=== PATIENT | male | born 1975 | race Caucasian/White ===

== ENCOUNTER 2016-12-28 08:06 | Outpatient (CLI) | payer MEDICARE, MEDICAID ==
--- OUTSIDE RECORDS SUMMARY | 2016-12-28 08:09 | XMS | Summary of Care ---
:1975 Author Name Librado Hollins Address Unavailable Unavailable , Care Team Providers Name Role Phone Librado Hollins Unavailable Unavailable SARAHI GODINEZ Unavailable Unavailable TAHIRA VIVEROS MD Primary Care Provider Unavailable TAHIRA LEBLANC Unavailable Unavailable , Unavailable Unavailable Functional Status Functional Status Health Issues Name Dates Details Functional status health issues are not documented Status: Cognitive Status Health Issues Name Dates Details Cognitive status health issues are not documented Status: Problems Name Dates Details Intracranial injury, initial encounter Status:Active Cerumen impaction(380.4, H61.20) Status:Active Well adult on routine health check(V70.0, Z00.00) Status:Active Influenza vaccine needed(V04.81, Z23) Status:Active Hypothyroidism(244.9, E03.9) Status:Active Head injury(959.01, S09.90XA) Status:Active Essential hypertriglyceridemia(272.1, E78.1) Status:Active Elevated liver function tests(790.6, R94.5) Status:Active Hyperlipidemia(272.4, E78.5) Status:Active Pre-diabetes(790.29, R73.03) Status:Active Need for hepatitis A and B vaccination(V05.3, Z23) Status:Active Behavioral problems(V40.9) Status:Active Depressive disorder(311, F32.9) Status:Active 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 Quantity:540 Refills:0 SARAHI GODINEZ M.D. ActiveSertraline HCl - 100 MG Oral Tablet TAKE ONE (1) TABLET(S) BY MOUTH TWICE A DAY. Quantity:180 Refills:0 SARAHI GODINEZ M.D. ActiveLevothyroxine Sodium 100 MCG Oral Tablet TAKE 1 TABLET DAILY DIRECTED. Quantity:90 Refills:1 Alpeshevelinemadeleinenj Librado N.Ana Huyfadz85-Mnps-4391 ActiveRosuvastatin Calcium 10 MG Oral Tablet TAKE ONE (1) TABLET(S) BY MOUTH ONCE A DAY. Quantity:90 Refills:3 Gunjan Librado N.PMarco Heeeydg0-Nrr-3774 SyqmgoFtwhu-7-jsps Ethyl Esters 1 GM Oral Capsule TAKE TWO (2) CAPSULE(S) BY MOUTH TWICE A DAY. Quantity:360 Refills:0 Librado Hollins N.Ana Immzqva21-Gzx-4283 ActiveFenofibrate 145 MG Oral Tablet TAKE 1 TABLET DAILY. Quantity:90 Refills:1 AlpeshevelineLibrado miranda N.P. Pklimxa1-Vqa-3594 ActiveOLANZapine 5 MG Oral Tablet TAKE ONE (1) TABLET(S) BY MOUTH AT BEDTIME. TAKE WITH OLANZAPINE 20 MG. Quantity:90 Refills:0 SARAHI GODINEZ M.D. Gizvdsr66-Jqjh-9175 FvxfikPyrdv-3-lumo Ethyl Esters 1 GM Oral Capsule TAKE 2 CAPSULE EVERY 12 HOURS Quantity:360 Refills:3 Alpeshevelineruben Librado N.PMarco Xbzhkcv48-Anxl-2106 ActiveFenofibrate 145 MG Oral Tablet TAKE one (1) tablet(s) by mouth every day. Quantity:90 Refills:3 AlpeshevelineLibrado miranda N.Ana Eydvwnc98-Gjj-8236 ActiveOLANZapine 20 MG Oral Tablet TAKE ONE (1) TABLET(S) BY MOUTH AT BEDTIME ALONG WITH OLANZAPINE 5MG. Quantity:90 Refills:0 SARAHI GODINEZ M.D. Srnkndx92-Iuu-6746 Active Allergies and Adverse Reactions Name Dates Details No Known Drug Allergies Status:Active Past Medical History Name Dates Details Head injury(959.01, S09.90XA) Status:Active History of Acute upper respiratory infection(465.9, J06.9) Status:Resolved History of Cough(786.2, R05) Status:Resolved History of essential hypertension(V12.59, Z86.79) Status:Resolved History of hyperlipidemia(V12.29, Z86.39) Status:Resolved History of hypothyroidism(V12.29, Z86.39) Status:Resolved History of obesity(V13.89, Z86.39) Status:Resolved Procedures Procedure Dates Details History of Brain Surgery History of Inguinal Hernia Repair History of Creation Of Ventriculo-Peritoneal CSF Shunt [[facility]] LIPID PANEL Ordered:03-May-2016 [[facility]] CMP W/EGFR Ordered:03-May-2016 [[facility]] HEMOGLOBIN A1c Ordered:03-May-2016 Liver [id number] Ordered:03-May-2016 Immunization Name Dates Details Influenza Administered on:19-Jan-2011 Lot #:[id number] Influenza Administered on:08-Apr-2013 Lot #:[id number] Fluzone Quadrivalent 0.5 ML Intramuscular Suspension Administered on:2015 Lot #:[id number] Fluzone Quadrivalent 0.5 ML Intramuscular Suspension Prefilled Syringe Administered on:26-Jan-2016 Lot #:[id number] Family History Mother Name Dates Details Family history of dementia(V17.2, Z81.8) Status:Active Family history of depression(V17.0, Z81.8) Status:Active Father Name Dates Details Family history of dementia(V17.2, Z81.8) Status:Active Family history of Alcohol dependence(303.90, F10.20) Status:Active Sister Name Dates Details Family history of depression(V17.0, Z81.8) Status:Active Brother Name Dates Details Family history of depression(V17.0, Z81.8) Status:Active Social History Name Dates Details - Smoking StatusNever smoker Vital Signs Date Test Result Details No Known Vitals to report Results Date Description Value Details 14-Jun-2016 11:36 [[facility]] CMP W/EGFR Glucose, Serum 84 mg/dL Range: 65-99 BUN 7 mg/dL Range: 6-24 Creatine, Serum 0.66 mg/dL (Below Range: 0.76-1.27 low threshold) eGFR If NonAfricn Am 119 mL/min/1.7 Range: >59 eGFR If Africn Am 138 mL/min/1.7 Range: >59 BUN/Creatine Ratio 11 Range: 9-20 Sodium, Serum 138 mmol/L Range: 134-144 Potassium, Serum 4.1 mmol/L Range: 3.5-5.2 Chloride, Serum 94 mmol/L (Below Range: 96-106 low threshold) Carbon Dioxide, Total 27 mmol/L Range: 18-29 Calcium, Serum 9.5 mg/dL Range: 8.7-10.2 Protein, Total, Serum 6.7 g/dL Range: 6.0-8.5 Albumin, Serum 4.1 g/dL Range: 3.5-5.5 Globulin, Total 2.6 g/dL Range: 1.5-4.5 A/G Ratio 1.6 Range: 1.2-2.2 Comments:Please note reference interval change Bilirubin, Total 0.3 mg/dL Range: 0.0-1.2 Alkaline Phosphatase, S 44 IU/L Range: 39-117 AST (SGOT) 37 IU/L Range: 0-40 ALT (SGPT) 34 IU/L Range: 0-44 11:36 [[facility]] LIPID PANEL Cholesterol, Total 137 mg/dL Range: 100-199 Triglycerides 210 mg/dL (Above Range: 0-149 high threshold) HDL Cholesterol 28 mg/dL (Below low Range: >39 threshold) VLDL Cholesterol Oleg 42 mg/dL (Above Range: 5-40 high threshold) LDL Cholesterol Calc 67 mg/dL Range: 0-99 Comment: LDL/HDL Ratio 2.4 ratio unit Range: 0.0-3.6 Comments:LDL/HDL Ratio Men Women 1/2 Avg.Risk 1.0 1.5 Avg.Risk 3.6 3.2 2X Avg.Risk 6.2 5.0 3X Avg.Risk 8.0 6.1 11:36 [[facility]] HEMOGLOBIN A1c Hemoglobin A1c 5.6 % Range: 4.8-5.6 Comments:. Pre-diabetes: 5.7 - 6.4 Diabetes: >6.4 Glycemic control for adults with diabetes: <7.0 Plan of Care Planned Observations Name Dates Details Planned Goals not documented Goal Planned Encounters Appointment; Provider: Librado Hollins Hr6-Ulwe-7228 10:45 Instructions Instructions not documented Encounters Appointment; Librado Hollins Encounter Diagnosis:Problem not documented 11:15 Appointment; SARAHI GODINEZ Encounter Diagnosis:Problem not documented 09:30 Appointment; Librado Hollins Encounter Diagnosis:Problem not documented 11:00 Appointment; Librado Hollins Encounter Diagnosis:Problem not documented 10:30 Appointment; SARAHI GODINEZ Encounter Diagnosis:Problem not documented 13:30 Appointment; Librado Hollins Encounter Diagnosis:Problem not documented 14:00 Appointment; Librado Hollins Encounter Diagnosis:Problem not documented 14:00 Appointment; SARAHI GODINEZ Encounter Diagnosis:Problem not documented 10:30 Appointment; SARAHI GODINEZ Encounter Diagnosis:Problem not documented 13:00 Appointment; Librado Hollins Encounter Diagnosis:Problem not documented 13:00 Appointment; MADI MEADE Encounter Diagnosis:Problem not documented 11:00 Appointment; Librado Hollins Encounter Diagnosis:Problem not documented 14:00 Appointment; AMBER CHAVEZ Encounter Diagnosis:Problem not documented 11:00
--- OUTSIDE RECORDS SUMMARY | 2016-12-28 08:09 | XMS | Summary of Care ---
:1975 Author Name SARAHI GODINEZ Address Unavailable Unavailable , Care Team Providers [...] TAKE 1 TABLET DAILY DIRECTED. Quantity:90 Refills:1 Librado Hollins NDanette Ilgdbbs34-Skig-3082 ActiveRosuvastatin Calcium 10 MG Oral Tablet TAKE ONE (1) TABLET(S) BY MOUTH ONCE A DAY. Quantity:90 Refills:1 AlpeshevelineLeonel mirandain N.P. Uospnoc0-Ivd-2029 HzpbwdAlpgw-3-xvza Ethyl Esters 1 GM Oral Capsule TAKE TWO (2) CAPSULE(S) BY MOUTH TWICE A DAY. Quantity:360 Refills:0 Librado Hollins N.Ana Rtenhvp43-Scy-3743 ActiveFenofibrate 145 MG Oral Tablet TAKE 1 TABLET DAILY. Quantity:90 Refills:1 Librado Hollins N.P. Mhcgfpp0-Udo-3894 ActiveOLANZapine 5 MG Oral Tablet TAKE ONE (1) TABLET(S) BY MOUTH AT BEDTIME. TAKE WITH OLANZAPINE 20 MG. Quantity:90 Refills:0 SARAHI GODINEZ M.D. Uhxgmsj45-Hzss-5059 ApyxhmTwlit-4-agqn Ethyl Esters 1 GM Oral Capsule TAKE 2 CAPSULE EVERY 12 HOURS Quantity:360 Refills:3 Librado Hollins N.Ana Szpmuck06-Wvuy-0277 ActiveFenofibrate 145 MG Oral Tablet TAKE one (1) tablet(s) by mouth every day. Quantity:90 Refills:3 Librado Hollins N.Ana Ozwhhho58-Jpf-7454 ActiveOLANZapine 20 MG Oral Tablet TAKE ONE (1) TABLET(S) BY MOUTH AT BEDTIME ALONG WITH OLANZAPINE 5MG. Quantity:90 Refills:0 SARAHI GODINEZ M.D. Adawrdd00-Yfy-9911 Active Allergies and Adverse Reactions Name Dates [...] History of Creation Of Ventriculo-Peritoneal CSF Shunt [[facility]] LIPID PANEL Ordered:03-May-2016 [[facility]] CMP W/EGFR Ordered:03-May-2016 [[facility]] HEMOGLOBIN A1c Ordered:03-May-2016 Liver [id number] Ordered:03-May-2016 Immunization Name Dates Details Influenza Administered on:19-Jan-2011 Lot #:[id number] Influenza Administered on:08-Apr-2013 Lot #:[id number] Fluzone Quadrivalent 0.5 ML Intramuscular Suspension Administered on:2015 Lot #:[id number] Fluzone Quadrivalent 0.5 ML Intramuscular Suspension Prefilled Syringe Administered on:26-Jan-2016 Lot #:[id number] Family History Mother Name Dates Details Family [...] smoker Vital Signs Date Test Result Details 03-May-2016 11:10 BP Systolic 111mm[Hg] Status: BP Diastolic 74mm[Hg] Status: Temperature 97.9f Status: Heart Rate 77/min Status: Physical Findings 16 Status:Comments:Respiration Height 72in Status: Weight 242.25lb Status: Body Mass Index Calculated 32.86kg/m2 Status: Body Surface Area Calculated 2.31m2 Status: 03-May-2016 09:45 BP Systolic 118mm[Hg] Status: BP Diastolic 76mm[Hg] Status: Height 72in Status: Weight 242lb Status: Body Mass Index Calculated 32.82kg/m2 Status: Body Surface Area Calculated 2.31m2 Status: Results Date Description Value Details Results not documented Plan of Care Planned Observations Name Dates Details Planned Goals not documented Goal Planned Encounters Appointment; Provider: Librado Hollins Nf7-Wvge-5661 10:45 Interventions Provided Medication ChangesDivalproex Sodium ER 500 MG Oral Tablet Extended Release 24 Hour - RenewOLANZapine 20 MG Oral Tablet - RenewOLANZapine 5 MG Oral Tablet - RenewSertraline HCl - 100 MG Oral Tablet - RenewPlan Section DataPlan Section: Details from Note:Discussed diagnosis, differential diagnosis, co morbidities, bio psychosocial factors, predisposing, precipitating and maintaining symptoms - Continue current dose of Depakote, Zyprexa and Zoloft.- F/u with MD in 2-3 month as it is difficulty for sister to bring patient to appointments.-Call with psychiatric concerns prior to next f/u visit. Instructions Instructions not documented Encounters Appointment; Librado Hollins Encounter Diagnosis:Problem not documented 11:00 Appointment; Librado Hollins Encounter Diagnosis:Problem not documented 10:30 Appointment; SARAHI GODINEZ Encounter Diagnosis:Problem not documented 13:30 Appointment; Librado Hlolins Encounter Diagnosis:Problem not documented 14:00 Appointment; Librado [...]
--- OUTSIDE RECORDS SUMMARY | 2016-12-28 08:09 | XMS | Summary of Care ---
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 Quantity:180 Refills:1 SARAHI GODINEZ M.D. Oogwbfg8-Ajk-8381 ActiveSertraline HCl - 100 MG Oral Tablet TAKE ONE (1) TABLET(S) BY MOUTH TWICE A DAY. Quantity:60 Refills:2 SARAHI GODINEZ M.D. ActiveLevothyroxine Sodium 100 MCG Oral Tablet TAKE 1 TABLET DAILY DIRECTED. Quantity:90 Refills:1 HardwiLibrado miranda N.P. Nksdhbl61-Xbsh-8305 ActiveRosuvastatin Calcium 10 MG Oral Tablet TAKE ONE (1) TABLET(S) BY MOUTH ONCE A DAY. Quantity:90 Refills:1 AlpeshevelinemadeleinenjLibrado N.Ana Ekryxix8-Xlc-4393 PmuoqeJkgca-1-vdld Ethyl Esters 1 GM Oral Capsule TAKE 2 CAPSULES TWICE DAILY. Quantity:360 Refills:1 Librado Hollins N.PMarcoActiveFenofibrate 145 MG Oral Tablet TAKE 1 TABLET DAILY. Quantity:90 Refills:1 AlpeshevelineLibrado miranda NMarcoPMarco Iamchlm6-Ept-1587 ActiveOLANZapine 5 MG Oral Tablet TAKE ONE (1) TABLET(S) BY MOUTH AT BEDTIME. TAKE WITH OLANZAPINE 20 MG. Quantity:30 Refills:2 SARAHI GODINEZ M.D. Atudims41-Jpgw-6430 GegoybZpflx-0-kyhs Ethyl Esters 1 GM Oral Capsule TAKE 2 CAPSULE EVERY 12 HOURS Quantity:360 Refills:3 Librado Hollins N.P. Ljyslrv37-Rtgf-9976 ActiveFenofibrate 145 MG Oral Tablet TAKE one (1) tablet(s) by mouth every day. Quantity:90 Refills:3 Librado Hollins NDanette Eeahwjp20-Npj-2343 ActiveOLANZapine 20 MG Oral Tablet TAKE ONE (1) TABLET(S) BY MOUTH AT BEDTIME ALONG WITH OLANZAPINE 5MG. Quantity:30 Refills:2 SARAHI GODINEZ M.D. Inzcpcu86-Miu-0257 Active Allergies and Adverse Reactions Name Dates [...] History of Creation Of Ventriculo-Peritoneal CSF Shunt [[facility]] LIPID PANEL Ordered:26-Jan-2016 [[facility]] CMP W/EGFR Ordered:26-Jan-2016 [[facility]] HEMOGLOBIN A1c Ordered:26-Jan-2016 [[facility]] HEPATITIS B SURFACE ANTIBODY (QUANT) Ordered:26-Jan-2016 [[facility]] HEPATITIS A AB, TOTAL Ordered:26-Jan-2016 [[facility]] HEPATITIS PANEL Ordered:26-Jan-2016 Liver [id number] Ordered:26-Jan-2016 Immunization Name Dates Details Influenza Administered on:19-Jan-2011 Lot #:[id number] Influenza Administered on:08-Apr-2013 Lot #:[id number] Fluzone Quadrivalent 0.5 ML Intramuscular Suspension Administered on:2015 Lot #:[id number] Fluzone Quadrivalent 0.5 ML Intramuscular Suspension Prefilled Syringe Administered on:26-Jan-2016 Lot #:[id number] Family History Mother Name Dates Details Family [...] to report Results Date Description Value Details Results not documented Plan of Care Planned Observations Name Dates Details Planned Goals not documented Goal Interventions Provided Medication ChangesFenofibrate 145 MG Oral Tablet - Renew Instructions Instructions not documented Encounters Appointment; Librado Hollins Wm48-Avs-2449 Encounter Diagnosis:Problem not documented 10:30 Appointment; SARAHI GODINEZ Qc22-Gyu-6629 Encounter Diagnosis:Problem not documented 13:30 Appointment; Librado Hollins Ia82-Pyms-6725 Encounter Diagnosis:Problem not documented 14:00 Appointment; Librado Hollins Vy8-Dmcm-9969 Encounter Diagnosis:Problem not documented 14:00 Appointment; SARAHI GODINEZ Pa65-Zcz-6808 Encounter Diagnosis:Problem not documented 10:30 Appointment; SARAHI GODINEZ Encounter Diagnosis:Problem not documented 13:00 Appointment; Librado Hollins Encounter Diagnosis:Problem not documented 13:00 Appointment; MADI MEADE Encounter Diagnosis:Problem not documented 11:00 Appointment; Librado Hollins Encounter Diagnosis:Problem not documented 14:00 Appointment; AMBER CHAVEZ Encounter Diagnosis:Problem not documented 11:00
--- OUTSIDE RECORDS SUMMARY | 2016-12-28 08:09 | XMS | Summary of Care ---
[...] Status:Active Elevated liver function tests(790.6, R94.5) Status:Active Pre-diabetes(790.29, R73.03) Status:Active Medications Name Dates Details Divalproex Sodium ER 500 MG Oral Tablet Extended Release 24 Hour TAKE THREE (3) TABLETS BY MOUTH EVERY MORNING AND THREE (3) TABLETS EVERY EVENING. Quantity:180 Refills:0 SARAHI GODINEZ M.D. ActiveSertraline HCl - 100 MG Oral Tablet TAKE ONE (1) TABLET(S) BY MOUTH TWICE A DAY. Quantity:60 Refills:0 SARAHI GODINEZ M.D. ActiveLevothyroxine Sodium 100 MCG Oral Tablet TAKE 1 TABLET DAILY DIRECTED. Quantity:90 Refills:1 Librado Hollins N.P. Hcyltpn26-Nbkz-2614 ActiveRosuvastatin Calcium 10 MG Oral Tablet TAKE ONE (1) TABLET(S) BY MOUTH ONCE A DAY. Quantity:90 Refills:1 Librado Hollins N.P. Fgfcxwq8-Mgf-0768 YduyxdChnds-6-usxq Ethyl Esters 1 GM Oral Capsule TAKE TWO (2) CAPSULE(S) BY MOUTH TWICE A DAY. Quantity:360 Refills:0 Librado Hollins N.P. Wwmggcx08-Isr-7513 ActiveFenofibrate 145 MG Oral Tablet TAKE 1 TABLET DAILY. Quantity:90 Refills:1 Librado Hollins N.P. Gqluyoa4-Bkk-9918 ActiveOLANZapine 5 MG Oral Tablet TAKE ONE (1) TABLET(S) BY MOUTH AT BEDTIME. TAKE WITH OLANZAPINE 20 MG. Quantity:30 Refills:0 SARAHI GODINEZ M.D. Ypfxhva43-Ibxd-6416 OorsquVqbgc-6-snxg Ethyl Esters 1 GM Oral Capsule TAKE 2 CAPSULE EVERY 12 HOURS Quantity:360 Refills:3 Librado Hollins N.P. Rtruens89-Pfuo-6571 ActiveFenofibrate 145 MG Oral Tablet TAKE one (1) tablet(s) by mouth every day. Quantity:90 Refills:3 Librado Hollins N.P. Augkiut49-Dpw-7609 ActiveOLANZapine 20 MG Oral Tablet TAKE ONE (1) TABLET(S) BY MOUTH AT BEDTIME ALONG WITH OLANZAPINE 5MG. Quantity:30 Refills:0 SARAHI GODINEZ M.D. Siseudn54-Kag-4413 Active Allergies and Adverse Reactions Name Dates [...] History of Creation Of Ventriculo-Peritoneal CSF Shunt Procedures not documented Immunization Name Dates Details Influenza Administered on:19-Jan-2011 Lot #:[id number] Influenza Administered on:08-Apr-2013 Lot #:[id number] Fluzone Quadrivalent 0.5 ML Intramuscular Suspension Administered on:2015 Lot #:[id number] Fluzone Quadrivalent 0.5 ML Intramuscular Suspension Prefilled Syringe Administered on:26-Jan-2016 Lot #:[id number] Family History Mother Name Dates Details Family [...] Goal Planned Encounters Appointment; Provider: Librado Hollins Zs9-Qem-9315 11:15 Appointment; Provider: SARAHI GODINEZ Ah2-Pek-8150 09:30 Interventions Provided Medication ChangesDivalproex Sodium ER 500 MG Oral Tablet Extended Release 24 Hour - Renew Instructions Instructions not documented Encounters [...]
--- OUTSIDE RECORDS SUMMARY | 2016-12-28 08:09 | XMS | Summary of Care ---
[...] DAILY DIRECTED. Quantity:90 Refills:1 Alpeshevelinemadeleinenj Librado N.Ana Tkleplw64-Pwep-6551 ActiveRosuvastatin Calcium 10 MG Oral Tablet TAKE ONE (1) TABLET(S) BY MOUTH ONCE A DAY. Quantity:90 Refills:1 Gunjan Librado N.PMarco Vpurkgi8-Bdm-4159 NlzgayDmuau-9-zbpi Ethyl Esters 1 GM Oral Capsule TAKE TWO (2) CAPSULE(S) BY MOUTH TWICE A DAY. Quantity:360 Refills:0 Alpeshevelineruben Librado N.PMarco Kmencii92-Yjp-3740 CllqxbDpzrt-2-xmhg Ethyl Esters 1 GM Oral Capsule TAKE 2 CAPSULE EVERY 12 HOURS Quantity:360 Refills:3 Gunjan Librado N.Ana Ohxgbau90-Kjrm-1813 ActiveOLANZapine 20 MG Oral Tablet TAKE ONE (1) TABLET(S) BY MOUTH AT BEDTIME ALONG WITH OLANZAPINE 5MG. Quantity:30 Refills:2 SARAHI GODINEZ M.D. Giamzsw33-Pvn-4857 ActiveOLANZapine 5 MG Oral Tablet TAKE ONE (1) TABLET(S) BY MOUTH AT BEDTIME. TAKE WITH OLANZAPINE 20 MG. Quantity:30 Refills:2 SARAHI GODINEZ M.D. Amiylvl54-Vkwi-8605 ActiveFenofibrate 145 MG Oral Tablet TAKE 1 TABLET DAILY. Quantity:90 Refills:1 AlpeshevelineLibrado miranda N.Ana Jtndaqf4-Cqw-3153 ActiveFenofibrate 145 MG Oral Tablet TAKE one (1) tablet(s) by mouth every day. Quantity:90 Refills:3 AlpeshevelineLibrado miranda N.Ana Phwbvqb89-Vwf-9200 Active Allergies and Adverse Reactions Name Dates [...] Name Dates Details Influenza Administered on:19-Jan-2011 Lot #:[id number] Influenza Administered on:08-Apr-2013 Lot #:[id number] Fluzone Quadrivalent 0.5 ML Intramuscular Suspension Administered on:2015 Lot #:[id number] Fluzone Quadrivalent 0.5 ML Intramuscular Suspension Prefilled Syringe Administered on:26-Jan-2016 Lot #:[id number] Family History Mother Name Dates Details Family [...] Goals not documented Goal Interventions Provided Medication DlvhgukGnokh-7-embp Ethyl Esters 1 GM Oral Capsule - Renew Instructions Instructions not documented Encounters Appointment; Librado Hollins Vs71-Rdi-1685 Encounter Diagnosis:Problem not documented 10:30 Appointment; SARAHI [...]
--- OUTSIDE RECORDS SUMMARY | 2016-12-28 08:09 | XMS | Summary of Care ---
:1975 Author Name Librado Hollins Address Unavailable Unavailable , Care Team Providers Name Role Phone Nurysnj Librado Unavailable Unavailable SARAHI GODINEZ Unavailable Unavailable TAHIRA [...] EVERY EVENING. Quantity:180 Refills:0 SARAHI GODINEZ M.D. Nfqxygh6-Pvl-6132 ActiveSertraline HCl - 100 MG Oral Tablet TAKE ONE (1) TABLET(S) BY MOUTH TWICE A DAY. Quantity:60 Refills:2 SARAHI GODINEZ M.D. Uvxpkkn8-Wnz-8477 ActiveLevothyroxine Sodium 100 MCG Oral Tablet TAKE 1 TABLET DAILY DIRECTED. Quantity:90 Refills:1 Librado Hollins N.P. Qisjlax96-Fmip-8508 ActiveRosuvastatin Calcium 10 MG Oral Tablet TAKE ONE (1) TABLET(S) BY MOUTH ONCE A DAY. Quantity:90 Refills:1 Librado Hollins N.PMarco Oskxtha7-Bxj-9970 CmkwcvOemwv-1-wdmi Ethyl Esters 1 GM Oral Capsule TAKE 2 CAPSULES TWICE DAILY. Quantity:360 Refills:1 Librado Hollins N.PMarcoActiveFenofibrate 145 MG Oral Tablet TAKE 1 TABLET DAILY. Quantity:90 Refills:1 Librado Hollins N.PMarco Qlsbdcc0-Ygs-5534 ActiveOLANZapine 5 MG Oral Tablet TAKE ONE (1) TABLET(S) BY MOUTH AT BEDTIME. TAKE WITH OLANZAPINE 20 MG. Quantity:30 Refills:2 SARAHI GODINEZ M.D. Dnnhceu85-Cqbd-1308 ViewuvUeudq-7-jfom Ethyl Esters 1 GM Oral Capsule TAKE 2 CAPSULE EVERY 12 HOURS Quantity:360 Refills:3 Librado Hollins N.P. Ogpxkns62-Fdjn-6747 ActiveFenofibrate 145 MG Oral Tablet TAKE one (1) tablet(s) by mouth every day. Quantity:90 Refills:3 Librado Hollins NDanette Ciypkmv16-Pqe-2607 ActiveOLANZapine 20 MG Oral Tablet TAKE ONE (1) TABLET(S) BY MOUTH AT BEDTIME ALONG WITH OLANZAPINE 5MG. Quantity:30 Refills:2 SARAHI GODINEZ M.D. Ewvkgpb45-Qiv-7690 Active Allergies and Adverse Reactions Name Dates [...] Name Dates Details Influenza Administered on:19-Jan-2011 Lot #:[id number] Influenza Administered on:08-Apr-2013 Lot #:[id number] Fluzone Quadrivalent 0.5 ML Intramuscular Suspension Administered on:2015 Lot #:[id number] Fluzone Quadrivalent 0.5 ML Intramuscular Suspension Prefilled Syringe Administered on:26-Jan-2016 Lot #:[id number] Family History Mother Name Dates Details Family [...] Details Planned Goals not documented Goal Planned Medications Name Dates Details Rosuvastatin Calcium 10 MG Oral Tablet Ordered:09-Dec-2015 Active Fenofibrate 145 MG Oral Tablet Ordered:14-Dec-2015 Active Interventions Provided Labs/Procedures/Imaging[QL] TSH, 3RD GENERATION W/REFLEX TO FT4; To be Done: 08 Apr 2015InstructionsPatient Specific Education Given; Done:Medications/ Immunizations AdministeredFluzone Quadrivalent 0.5 ML Intramuscular Suspension; Done: 08 Apr 2015 Instructions Instructions not documented Encounters Appointment; MADI MEADE Ka61-Bbbk-8763 Encounter Diagnosis:Problem not documented 11:00 Appointment; Librado Hollins Encounter Diagnosis:Problem not documented 14:00 Appointment; AMBER CHAVEZ Encounter Diagnosis:Problem not documented 11:00
--- OUTSIDE RECORDS SUMMARY | 2016-12-28 08:09 | XMS | Summary of Care ---
:1975 Author Care Team Providers Name Role Phone Gunjan Librado Unavailable Unavailable SARAHI GODINEZ Unavailable Unavailable [...] hepatitis A and B vaccination(V05.3, Z23) Status:Active Medications Name Dates Details Divalproex Sodium ER 500 MG Oral Tablet Extended Release 24 Hour TAKE THREE (3) TABLETS BY MOUTH EVERY MORNING AND THREE (3) TABLETS EVERY EVENING. Quantity:180 Refills:0 SARAHI GODINEZ M.D. Bmzrqqf1-Nwo-7780 ActiveSertraline HCl - 100 MG Oral Tablet TAKE ONE (1) TABLET(S) BY MOUTH TWICE A DAY. Quantity:60 Refills:0 SARAHI GODINEZ M.D. ActiveLevothyroxine Sodium 100 MCG Oral Tablet TAKE 1 TABLET DAILY DIRECTED. Quantity:90 Refills:1 Librado Hollins N.P. Rkwcrde31-Dpao-4186 ActiveRosuvastatin Calcium 10 MG Oral Tablet TAKE ONE (1) TABLET(S) BY MOUTH ONCE A DAY. Quantity:90 Refills:1 Librado Hollins N.P. Ndjchkl8-Nfy-6513 SjoqieJjxpf-1-yhpq Ethyl Esters 1 GM Oral Capsule TAKE TWO (2) CAPSULE(S) BY MOUTH TWICE A DAY. Quantity:360 Refills:0 Librado Hollins N.P. Ynegqbb72-Cpr-2067 ActiveFenofibrate 145 MG Oral Tablet TAKE 1 TABLET DAILY. Quantity:90 Refills:1 Librado Hollins N.P. Jtwyupq1-Lit-8105 ActiveOLANZapine 5 MG Oral Tablet TAKE ONE (1) TABLET(S) BY MOUTH AT BEDTIME. TAKE WITH OLANZAPINE 20 MG. Quantity:30 Refills:0 SARAHI GODINEZ M.D. Hshalsb81-Gdef-0849 RajialFtaci-7-sfxs Ethyl Esters 1 GM Oral Capsule TAKE 2 CAPSULE EVERY 12 HOURS Quantity:360 Refills:3 Librado Hollins N.P. Xrearlo64-Jzex-2494 ActiveFenofibrate 145 MG Oral Tablet TAKE one (1) tablet(s) by mouth every day. Quantity:90 Refills:3 Librado Hollins N.P. Izaaabt04-Avd-9027 ActiveOLANZapine 20 MG Oral Tablet TAKE ONE (1) TABLET(S) BY MOUTH AT BEDTIME ALONG WITH OLANZAPINE 5MG. Quantity:30 Refills:0 SARAHI GODINEZ M.D. Mrnbtoq64-Ioi-0297 Active Allergies and Adverse Reactions Name Dates [...] of Creation Of Ventriculo-Peritoneal CSF Shunt [QL] HEMOGLOBIN A1c Ordered:03-May-2016 [[facility]] CMP W/EGFR Ordered:03-May-2016 [[facility]] LIPID PANEL Ordered:03-May-2016 Liver [id number] Ordered:03-May-2016 Immunization Name Dates Details Influenza Administered on:19-Jan-2011 Lot #:[id number] Influenza Administered on:08-Apr-2013 Lot #:[id number] Fluzone Quadrivalent 0.5 ML Intramuscular Suspension Administered on:2015 Lot #:[id number] Fluzone Quadrivalent 0.5 ML Intramuscular Suspension Prefilled Syringe Administered on:26-Jan-2016 Lot #:[id number] Family History Mother Name Dates Details Family [...] Goal Planned Encounters Appointment; Provider: Librado Hollins Ez6-Vlmi-4732 10:45 Appointment; Provider: SARAHI GODINEZ 11:00 Instructions Instructions not documented Encounters Appointment; Librado [...]
--- OUTSIDE RECORDS SUMMARY | 2016-12-28 08:09 | XMS | Summary of Care ---
[...] A DAY. Quantity:180 Refills:0 SARAHI GODINEZ M.D. Yserpur7-Ach-2988 ActiveLevothyroxine Sodium 100 MCG Oral Tablet TAKE 1 TABLET DAILY DIRECTED. Quantity:90 Refills:1 AlpeshevelineLibrado miranda N.Ana Rdkwfnr48-Otlp-4526 ActiveRosuvastatin Calcium 10 MG Oral Tablet TAKE ONE (1) TABLET(S) BY MOUTH ONCE A DAY. Quantity:90 Refills:3 Gunjan Librado N.P. Fuffdpy4-Abd-5709 GzugzrFcctr-6-aduj Ethyl Esters 1 GM Oral Capsule TAKE TWO (2) CAPSULE(S) BY MOUTH TWICE A DAY. Quantity:360 Refills:0 Librado Hollins N.PMarco Zsymkhy13-Vjq-9703 ActiveFenofibrate 145 MG Oral Tablet TAKE 1 TABLET DAILY. Quantity:90 Refills:1 Librado Hollins N.P. Wthzgkk4-Ejv-1544 ActiveOLANZapine 5 MG Oral Tablet TAKE ONE (1) TABLET(S) BY MOUTH AT BEDTIME. TAKE WITH OLANZAPINE 20 MG. Quantity:90 Refills:0 SARAHI GODINEZ M.D. Iyewohg36-Jtdl-4424 PdkwpdTzkja-6-qqjo Ethyl Esters 1 GM Oral Capsule TAKE 2 CAPSULE EVERY 12 HOURS Quantity:360 Refills:3 Librado Hollins N.PMarco Dunovxn24-Eyxq-4589 ActiveFenofibrate 145 MG Oral Tablet TAKE one (1) tablet(s) by mouth every day. Quantity:90 Refills:3 Librado Hollins N.PMarco Vxeiqwu34-Tqj-8291 ActiveOLANZapine 20 MG Oral Tablet TAKE ONE (1) TABLET(S) BY MOUTH AT BEDTIME ALONG WITH OLANZAPINE 5MG. Quantity:90 Refills:0 SARAHI GODINEZ M.D. Mzjhmkx33-Gwm-5586 Active Allergies and Adverse Reactions Name Dates [...] Name Dates Details Influenza Administered on:19-Jan-2011 Lot #:[id number] Influenza Administered on:08-Apr-2013 Lot #:[id number] Fluzone Quadrivalent 0.5 ML Intramuscular Suspension Administered on:2015 Lot #:[id number] Fluzone Quadrivalent 0.5 ML Intramuscular Suspension Prefilled Syringe Administered on:26-Jan-2016 Lot #:[id number] Family History Mother Name Dates Details Family [...] Results Date Description Value Details 14-Jun-2016 11:36 [[facility]] CMP W/EGFR Glucose, Serum 84 mg/dL Range: [...] ALT (SGPT) 34 IU/L Range: 0-44 11:36 [[facility]] LIPID PANEL Cholesterol, Total 137 mg/dL Range: [...] 6.2 5.0 3X Avg.Risk 8.0 6.1 11:36 [QL] HEMOGLOBIN A1c Hemoglobin A1c 5.6 % Range: 4.8-5.6 Comments:. Pre-diabetes: 5.7 - 6.4 Diabetes: >6.4 Glycemic control for adults with diabetes: <7.0 Plan of Care Planned Observations Name Dates Details Planned Goals not documented Goal Planned Encounters Appointment; Provider: Librado Hollins Uo8-Rxhj-9244 10:45 Instructions Instructions not documented Encounters Appointment; [...]
--- OUTSIDE RECORDS SUMMARY | 2016-12-28 08:09 | XMS | Summary of Care ---
:1975 Author Name Brenda Smith Address Unavailable Unavailable , Care Team Providers Name Role Phone Librado Hollins Unavailable Unavailable Brenda Smith Unavailable Unavailable SARAHI GODINEZ Unavailable Unavailable TAHIRA [...] TABLET DAILY DIRECTED. Quantity:90 Refills:1 Librado Hollins N.PMarco Tjiqfcj53-Mudl-4328 ActiveRosuvastatin Calcium 10 MG Oral Tablet TAKE ONE (1) TABLET(S) BY MOUTH ONCE A DAY. Quantity:90 Refills:1 Leonel Hollinsin N.P. Yyvqcpf8-Vcu-1141 JrjqwuNsoaz-9-sqnt Ethyl Esters 1 GM Oral Capsule TAKE TWO (2) CAPSULE(S) BY MOUTH TWICE A DAY. Quantity:360 Refills:0 Leonel Hollinsin N.P. Ouxwlqf39-Blx-2554 ActiveFenofibrate 145 MG Oral Tablet TAKE 1 TABLET DAILY. Quantity:90 Refills:1 Leonel Hollinsin N.P. Yqccgio2-Blf-0100 ActiveOLANZapine 5 MG Oral Tablet TAKE ONE (1) TABLET(S) BY MOUTH AT BEDTIME. TAKE WITH OLANZAPINE 20 MG. Quantity:30 Refills:0 SARAHI GODINEZ M.D. Azwcoee49-Ztqn-7836 BrkteyKdtfx-1-iinz Ethyl Esters 1 GM Oral Capsule TAKE 2 CAPSULE EVERY 12 HOURS Quantity:360 Refills:3 Librado Hollins N.PMarco Ldhwpjz35-Wqiz-2479 ActiveFenofibrate 145 MG Oral Tablet TAKE one (1) tablet(s) by mouth every day. Quantity:90 Refills:3 Librado Hollins N.PMarco Jkwiubo65-Ruc-8854 ActiveOLANZapine 20 MG Oral Tablet TAKE ONE (1) TABLET(S) BY MOUTH AT BEDTIME ALONG WITH OLANZAPINE 5MG. Quantity:30 Refills:0 SARAHI GODINEZ M.D. Syjbscf35-Zle-0076 Active Allergies and Adverse Reactions Name Dates [...] of Creation Of Ventriculo-Peritoneal CSF Shunt [[facility]] LIPID PANEL Ordered:03-May-2016 [[facility]] CMP W/EGFR Ordered:03-May-2016 [[facility]] HEMOGLOBIN A1c Ordered:03-May-2016 Liver [id number] Ordered:03-May-2016 Immunization Name Dates Details Influenza Administered on:19-Jan-2011 Lot #:[id number] Influenza Administered on:08-Apr-2013 Lot #:[id number] Fluzone Quadrivalent 0.5 ML Intramuscular Suspension Administered on:2015 Lot #:[id number] Fluzone Quadrivalent 0.5 ML Intramuscular Suspension Prefilled Syringe Administered on:26-Jan-2016 Lot #:[id number] Family History Mother Name Dates Details Family [...] Goal Planned Encounters Appointment; Provider: Librado Hollins 10:45 Appointment; Provider: SARAHI GODINEZ 11:00 Instructions [...]
--- OUTSIDE RECORDS SUMMARY | 2016-12-28 08:09 | XMS | Summary of Care ---
[...] DAILY DIRECTED. Quantity:90 Refills:1 Librado Hollins N.P. Xigjmvd30-Ndog-5045 ActiveRosuvastatin Calcium 10 MG Oral Tablet TAKE ONE (1) TABLET(S) BY MOUTH ONCE A DAY. Quantity:90 Refills:1 Librado Hollins N.P. Ltdglph0-Mqw-4884 QysorlWnlpp-5-kmcv Ethyl Esters 1 GM Oral Capsule TAKE TWO (2) CAPSULE(S) BY MOUTH TWICE A DAY. Quantity:360 Refills:0 Librado Hollins N.P. Hiavvpn65-Fok-5962 ActiveFenofibrate 145 MG Oral Tablet TAKE 1 TABLET DAILY. Quantity:90 Refills:1 Librado Hollins N.P. Fwvhmoj1-Hms-1136 ActiveOLANZapine 5 MG Oral Tablet TAKE ONE (1) TABLET(S) BY MOUTH AT BEDTIME. TAKE WITH OLANZAPINE 20 MG. Quantity:30 Refills:0 SARAHI GODINEZ M.D. Jsnhtjk18-Souy-7782 RsjkvoDkfpd-3-fqlm Ethyl Esters 1 GM Oral Capsule TAKE 2 CAPSULE EVERY 12 HOURS Quantity:360 Refills:3 Librado Hollins N.P. Kkryuut87-Kcrl-3086 ActiveFenofibrate 145 MG Oral Tablet TAKE one (1) tablet(s) by mouth every day. Quantity:90 Refills:3 Librado Hollins N.P. Tcgirlz64-Hqa-1509 ActiveOLANZapine 20 MG Oral Tablet TAKE ONE (1) TABLET(S) BY MOUTH AT BEDTIME ALONG WITH OLANZAPINE 5MG. Quantity:30 Refills:0 SARAHI GODINZE M.D. Doxryji96-Wff-0126 Active Allergies and Adverse Reactions Name Dates [...] Name Dates Details Influenza Administered on:19-Jan-2011 Lot #:[id number] Influenza Administered on:08-Apr-2013 Lot #:[id number] Fluzone Quadrivalent 0.5 ML Intramuscular Suspension Administered on:2015 Lot #:[id number] Fluzone Quadrivalent 0.5 ML Intramuscular Suspension Prefilled Syringe Administered on:26-Jan-2016 Lot #:[id number] Family History Mother Name Dates Details Family [...] Goals not documented Goal Interventions Provided Medication ChangesOLANZapine 20 MG Oral Tablet - RenewOLANZapine 5 MG Oral Tablet - RenewSertraline HCl - 100 MG Oral Tablet - Renew Instructions Instructions [...]
--- OUTSIDE RECORDS SUMMARY | 2016-12-28 08:10 | XMS | Summary of Care ---
[...] every evening. Quantity:180 Refills:1 SARAHI GODINEZ M.D. Bdgjcxz1-Tma-9088 ActiveSertraline HCl - 100 MG Oral Tablet TAKE ONE (1) TABLET(S) BY MOUTH TWICE A DAY. Quantity:60 Refills:2 SARAHI GODINEZ M.D. ActiveLevothyroxine Sodium 100 MCG Oral Tablet TAKE 1 TABLET DAILY DIRECTED. Quantity:90 Refills:1 Librado Hollins N.P. Ennuecm41-Xuzu-8863 ActiveRosuvastatin Calcium 10 MG Oral Tablet TAKE ONE (1) TABLET(S) BY MOUTH ONCE A DAY. Quantity:90 Refills:1 Gunjan Librado N.PMarco Dychlzn1-Ssp-0401 EwuqinGnfjn-8-ukgi Ethyl Esters 1 GM Oral Capsule TAKE 2 CAPSULES TWICE DAILY. Quantity:360 Refills:1 AlpeshevelineLibrado miranda N.PMarcoActiveFenofibrate 145 MG Oral Tablet TAKE 1 TABLET DAILY. Quantity:90 Refills:1 Nurysnj Librado N.PMarco Jgcsjaz5-Rak-3586 ActiveOLANZapine 5 MG Oral Tablet TAKE ONE (1) TABLET(S) BY MOUTH AT BEDTIME. TAKE WITH OLANZAPINE 20 MG. Quantity:30 Refills:2 SARAHI GODINEZ M.D. Wvowgbz72-Kmyt-3677 KivzahJwxxu-9-mcqe Ethyl Esters 1 GM Oral Capsule TAKE 2 CAPSULE EVERY 12 HOURS Quantity:360 Refills:3 Gunjan Librado NDanette Ojkqzmy49-Mfcg-7865 ActiveFenofibrate 145 MG Oral Tablet TAKE one (1) tablet(s) by mouth every day. Quantity:90 Refills:0 Alpeshjennifer Librado NDanette Knjmfsj14-Nfy-5866 ActiveOLANZapine 20 MG Oral Tablet TAKE ONE (1) TABLET(S) BY MOUTH AT BEDTIME ALONG WITH OLANZAPINE 5MG. Quantity:30 Refills:2 SARAHI GODINEZ M.D. Vsefjam93-Dgo-2541 Active Allergies and Adverse Reactions Name Dates [...] History of Creation Of Ventriculo-Peritoneal CSF Shunt [[facility]] VALPROIC ACID Pendin10-Jan-2016 [QL] COMPREHENSIVE METABOLIC PANEL W/O eGFR Pendin10-Jan-2016 [[facility]] LIPID PANEL Pendin10-Jan-2016 [[facility]] HEMOGLOBIN A1c Pendin10-Jan-2016 [[facility]] LIPID PANEL Ordered:26-Jan-2016 [[facility]] CMP W/EGFR Ordered:26-Jan-2016 [[facility]] HEMOGLOBIN A1c Ordered:26-Jan-2016 [[facility]] HEPATITIS B SURFACE ANTIBODY (QUANT) Ordered:26-Jan-2016 [[facility]] HEPATITIS A AB, TOTAL Ordered:26-Jan-2016 [[facility]] HEPATITIS PANEL Ordered:26-Jan-2016 Liver [id number] Ordered:26-Jan-2016 Immunization Name Dates Details Influenza Administered on:19-Jan-2011 Lot #:[id number] Influenza Administered on:08-Apr-2013 Lot #:[id number] Fluzone Quadrivalent 0.5 ML Intramuscular Suspension Administered on:2015 Lot #:[id number] Fluzone Quadrivalent 0.5 ML Intramuscular Suspension Prefilled Syringe Administered on:26-Jan-2016 Lot #:[id number] Family History Mother Name Dates Details Family [...] smoker Vital Signs Date Test Result Details 26-Jan-2016 11:10 BP Systolic 122mm[Hg] Status: BP Diastolic 77mm[Hg] Status: Temperature 97.7f Status: Heart Rate 76/min Status: Physical Findings 16 Status:Comments:Respiration Height 72in Status: Weight 256lb Status: Body Mass Index Calculated 34.72kg/m2 Status: Body Surface Area Calculated 2.37m2 Status: 10-Jan-2016 12:53 BP Systolic 116mm[Hg] Status: BP Diastolic 70mm[Hg] Status: Heart Rate 69/min Status: Height 72in Status: Weight 256lb Status: Body Mass Index Calculated 34.72kg/m2 Status: Body Surface Area Calculated 2.37m2 Status: Results Date Description Value Details 12-Jan-2016 09:20 [QL] COMPREHENSIVE METABOLIC PANEL W/O eGFR Glucose, Serum 78 mg/dL Range: 65-99 BUN 12 mg/dL Range: 6-24 Creatine, Serum 0.82 mg/dL Range: 0.76-1.27 eGFR If NonAfricn Am 109 mL/min/1.7 Range: >59 eGFR If Africn Am 126 mL/min/1.7 Range: >59 BUN/Creatine Ratio 15 Range: 9-20 Sodium, Serum 144 mmol/L Range: 134-144 Comments:Effective January 17, 2016 the reference interval for Sodium, Serum will be changing to: 136 - 144 Potassium, Serum 4.6 mmol/L Range: 3.5-5.2 Comments:Effective January 17, 2016 the reference interval for Potassium, Serum will be changing to: 0 - 7 days 3.7 - 5.2 8 - 30 days 3.7 - 6.4 1 - 6 months 3.8 - 6.0 7 months - 1 year 3.8 - 5.3>1 year 3.5 - 5.2 Chloride, Serum 99 mmol/L Range: 97-108 Comments:Effective January 17, 2016 the reference interval for Chloride, Serum will be changing to: 97 - 106 Carbon Dioxide, Total 28 mmol/L Range: 18-29 Calcium, Serum 9.7 mg/dL Range: 8.7-10.2 Protein, Total, Serum 6.8 g/dL Range: 6.0-8.5 Albumin, Serum 4.3 g/dL Range: 3.5-5.5 Globulin, Total 2.5 g/dL Range: 1.5-4.5 A/G Ratio 1.7 Range: 1.1-2.5 Bilirubin, Total 0.3 mg/dL Range: 0.0-1.2 Alkaline Phosphatase, S 50 IU/L Range: 39-117 AST (SGOT) 50 IU/L (Above Range: 0-40 high threshold) ALT (SGPT) 52 IU/L (Above Range: 0-44 high threshold) 09:20 [QL] LIPID PANEL Cholesterol, Total 153 mg/dL Range: 100-199 Triglycerides 243 mg/dL (Above Range: 0-149 high threshold) HDL Cholesterol 21 mg/dL (Below Range: >39 low threshold) Comments:According to ATP-III Guidelines, HDL-C >59 mg/dL is considered anegative risk factor for CHD. VLDL Cholesterol Oleg 49 mg/dL (Above Range: 5-40 high threshold) LDL Cholesterol Calc 83 mg/dL Range: 0-99 Comment: LDL/HDL Ratio 4.0 ratio unit Range: 0.0-3.6 (Above high Comments:LDL/HDL Ratio Men Women 1/2 Avg.Risk 1.0 1.5 threshold) Avg.Risk 3.6 3.2 2X Avg.Risk 6.2 5.0 3X Avg.Risk 8.0 6.1 09:20 [[facility]] HEMOGLOBIN A1c Hemoglobin A1c 5.9 % (Above high Range: 4.8-5.6 threshold) Comments:. Pre-diabetes: 5.7 - 6.4 Diabetes: > 6.4 Glycemic control for adults with diabetes: <7.0 09:20 [QL] VALPROIC ACID Valproic Acid (Depakote),S 90 ug/mL Range: 50-100 Comments:Detection Limit=4 <4 indicates None Detected . Toxicity may occur at levels of 100-500. Measurements of free unbound valproic acid may improve the assess- ment of clinical response. Plan of Care Planned Observations Name Dates Details Planned Goals not documented Goal Planned Encounters Appointment; Provider: Librado Hollins 11:00 Instructions Instructions not documented Encounters Appointment; [...] AMBER CHAVEZ Encounter Diagnosis:Problem not documented 11:00 Appointment; JÚNIOR BAIN Encounter Diagnosis:Problem not documented 10:30
--- OUTSIDE RECORDS SUMMARY | 2016-12-28 08:10 | XMS | Summary of Care ---
[...] DAILY DIRECTED. Quantity:90 Refills:1 Librado Hollins N.P. Xcovnsq97-Iskg-8984 ActiveRosuvastatin Calcium 10 MG Oral Tablet TAKE ONE (1) TABLET(S) BY MOUTH ONCE A DAY. Quantity:90 Refills:1 Gunjna Librado Mcgarry Ydekrfg9-Hai-2701 MzxxrdSztxw-6-ppdl Ethyl Esters 1 GM Oral Capsule TAKE 2 CAPSULES TWICE DAILY. Quantity:360 Refills:1 AlpeshevelineLibrado miranda N.P.ActiveFenofibrate 145 MG Oral Tablet TAKE 1 TABLET DAILY. Quantity:90 Refills:1 NurysLibrado mauro NDanette Rptcezs4-Dgh-7512 ActiveOLANZapine 5 MG Oral Tablet TAKE ONE (1) TABLET(S) BY MOUTH AT BEDTIME. TAKE WITH OLANZAPINE 20 MG. Quantity:30 Refills:2 SARAHI GODINEZ M.D. Ulfrgml37-Nbmo-1426 TkvgxjSelzr-9-tndh Ethyl Esters 1 GM Oral Capsule TAKE 2 CAPSULE EVERY 12 HOURS Quantity:360 Refills:3 Librado Hollins N.P. Tefitmw67-Sfqb-4117 ActiveFenofibrate 145 MG Oral Tablet TAKE one (1) tablet(s) by mouth every day. Quantity:90 Refills:3 Alpeshevelineruben Librado Mcgarry Yzwhgfa94-Bzu-8517 ActiveOLANZapine 20 MG Oral Tablet TAKE ONE (1) TABLET(S) BY MOUTH AT BEDTIME ALONG WITH OLANZAPINE 5MG. Quantity:30 Refills:2 SARAHI GODINEZ M.D. Cahnlcu46-Dou-4147 Active Allergies and Adverse Reactions Name Dates [...] History of Creation Of Ventriculo-Peritoneal CSF Shunt [[facility]] LIPID PANEL Ordered:26-Jan-2016 [[facility]] CMP W/EGFR Ordered:26-Jan-2016 [[facility]] HEMOGLOBIN A1c Ordered:26-Jan-2016 [[facility]] HEPATITIS B SURFACE ANTIBODY (QUANT) Ordered:26-Jan-2016 [[facility]] HEPATITIS A AB, TOTAL Ordered:26-Jan-2016 [[facility]] HEPATITIS PANEL Ordered:26-Jan-2016 Liver [id number] Ordered:26-Jan-2016 Immunization Name Dates Details Influenza Administered on:19-Jan-2011 Lot #:[id number] Influenza Administered on:08-Apr-2013 Lot #:[id number] Fluzone Quadrivalent 0.5 ML Intramuscular Suspension Administered on:2015 Lot #:[id number] Fluzone Quadrivalent 0.5 ML Intramuscular Suspension Prefilled Syringe Administered on:26-Jan-2016 Lot #:[id number] Family History Mother Name Dates Details Family [...] Goals not documented Goal Interventions Provided Medication ChangesDivalproex Sodium ER 500 MG Oral Tablet Extended Release 24 Hour - Renew Instructions Instructions not documented Encounters Appointment; Librado Hollins [id number]-Wmp-[id number] Encounter Diagnosis:Problem not documented 10:30 Appointment; SARAHI [...]
--- OUTSIDE RECORDS SUMMARY | 2016-12-28 08:10 | XMS | Summary of Care ---
[...] DAILY DIRECTED. Quantity:90 Refills:1 Librado Hollins N.P. Lbhowlq58-Enoy-0950 ActiveRosuvastatin Calcium 10 MG Oral Tablet TAKE ONE (1) TABLET(S) BY MOUTH ONCE A DAY. Quantity:90 Refills:1 Librado Hollins N.PMarco Mzxmzza2-Rfw-7458 QrmhzmDwujp-1-iwpx Ethyl Esters 1 GM Oral Capsule TAKE TWO (2) CAPSULE(S) BY MOUTH TWICE A DAY. Quantity:360 Refills:0 Librado Hollins N.Ana Hcrdecb81-Zam-8394 ActiveFenofibrate 145 MG Oral Tablet TAKE 1 TABLET DAILY. Quantity:90 Refills:1 Librado Hollins N.Ana Njczzbu7-Ugc-4608 ActiveOLANZapine 5 MG Oral Tablet TAKE ONE (1) TABLET(S) BY MOUTH AT BEDTIME. TAKE WITH OLANZAPINE 20 MG. Quantity:30 Refills:0 ASRAHI GODINEZ M.D. Nwutjip06-Cgng-7474 ZnxaftBefsg-6-azez Ethyl Esters 1 GM Oral Capsule TAKE 2 CAPSULE EVERY 12 HOURS Quantity:360 Refills:3 Librado Hollins N.PMarco Dqngwam55-Kdtt-9880 ActiveFenofibrate 145 MG Oral Tablet TAKE one (1) tablet(s) by mouth every day. Quantity:90 Refills:3 Librado Hollins N.Ana Uvxsvgz87-Von-6487 ActiveOLANZapine 20 MG Oral Tablet TAKE ONE (1) TABLET(S) BY MOUTH AT BEDTIME ALONG WITH OLANZAPINE 5MG. Quantity:30 Refills:0 SARAHI GODINEZ M.D. Zjhcgie14-Bfi-3559 Active Allergies and Adverse Reactions Name Dates [...] History of Creation Of Ventriculo-Peritoneal CSF Shunt [[facility]] LIPID PANEL Ordered:03-May-2016 [[facility]] CMP W/EGFR Ordered:03-May-2016 [[facility]] HEMOGLOBIN A1c Ordered:03-May-2016 Liver [id number] Ordered:03-May-2016 Immunization Name Dates Details Influenza Administered on:19-Jan-2011 Lot #:[id number] Influenza Administered on:08-Apr-2013 Lot #:[id number] Fluzone Quadrivalent 0.5 ML Intramuscular Suspension Administered on:2015 Lot #:[id number] Fluzone Quadrivalent 0.5 ML Intramuscular Suspension Prefilled Syringe Administered on:26-Jan-2016 Lot #:[id number] Family History Mother Name Dates Details Family [...] Planned Goals not documented Goal Planned Encounters Follow-up visit in 4 months Appointment; Provider: SARAHI GODINEZ Og3-Chc-5458 11:00 Planned Medications Name Dates Details HAV-HBV (Twinrix) Ordered:31-May-2016 ActiveComments:To be Done: Dates Schedule; 07/31/2016; 12/01/2016 Interventions Provided Labs/Procedures/Imaging[[facility]] CMP W/EGFR; To be Done: 03 May 2016[[facility]] HEMOGLOBIN A1c; To be Done: 03 May 2016[[facility]] LIPID PANEL; To be Done: 03 May 2016US Liver [id number]; To be Done: 03 May 2016InstructionsPatient Specific Education Given; Done: Instructions Instructions not documented Encounters Appointment; SARAHI GODINEZ Db3-Ale-[id number] Encounter Diagnosis:Problem not documented 09:30 Appointment; Librado [...]
--- OUTSIDE RECORDS SUMMARY | 2016-12-28 08:10 | XMS | Summary of Care ---
:1975 Author Name Mirna Wyatt Address Unavailable Unavailable , Care Team Providers Name Role Phone Librado Hollins Unavailable Unavailable SARAHI GODINEZ Unavailable Unavailable Mirna Wyatt Unavailable Unavailable TAHIRA VIVEROS MD Primary Care [...] every evening. Quantity:180 Refills:1 SARAHI GODINEZ M.D. Aliqtuz9-Eil-9011 ActiveSertraline HCl - 100 MG Oral Tablet TAKE ONE (1) TABLET(S) BY MOUTH TWICE A DAY. Quantity:60 Refills:2 SARAHI GODINEZ M.D. ActiveLevothyroxine Sodium 100 MCG Oral Tablet TAKE 1 TABLET DAILY DIRECTED. Quantity:90 Refills:1 Librado HollinsDanette Thyrxzd25-Uzvt-2100 ActiveRosuvastatin Calcium 10 MG Oral Tablet TAKE ONE (1) TABLET(S) BY MOUTH ONCE A DAY. Quantity:90 Refills:1 Librado Hollins N.PMarco Volzyyl3-Sqx-8310 WyfcdvLajpr-8-pemn Ethyl Esters 1 GM Oral Capsule TAKE 2 CAPSULES TWICE DAILY. Quantity:360 Refills:1 Librado Hollins N.PMarcoActiveFenofibrate 145 MG Oral Tablet TAKE 1 TABLET DAILY. Quantity:90 Refills:1 Leonel Hollinsin N.PMarco Bjdjmtk8-Fum-6981 ActiveOLANZapine 5 MG Oral Tablet TAKE ONE (1) TABLET(S) BY MOUTH AT BEDTIME. TAKE WITH OLANZAPINE 20 MG. Quantity:30 Refills:2 SARAHI GODINEZ M.D. Lksrchv14-Ybzn-9204 DtpkegGuyka-6-gshq Ethyl Esters 1 GM Oral Capsule TAKE 2 CAPSULE EVERY 12 HOURS Quantity:360 Refills:3 Librado Hollins N.Ana Dnbsnhh27-Fhvp-4296 ActiveFenofibrate 145 MG Oral Tablet TAKE one (1) tablet(s) by mouth every day. Quantity:90 Refills:0 Leonel Hollinsin N.PMarco Ppmugng99-Jki-5579 ActiveOLANZapine 20 MG Oral Tablet TAKE ONE (1) TABLET(S) BY MOUTH AT BEDTIME ALONG WITH OLANZAPINE 5MG. Quantity:30 Refills:2 SARAHI GODINEZ M.D. Trejele72-Afw-6317 Active Allergies and Adverse Reactions Name Dates [...] [QL] COMPREHENSIVE METABOLIC PANEL W/O eGFR Pendin10-Jan-2016 [QL] LIPID PANEL Pendin10-Jan-2016 [QL] HEMOGLOBIN A1c Pendin10-Jan-2016 [QL] LIPID PANEL Ordered:26-Jan-2016 [QL] CMP W/EGFR Ordered:26-Jan-2016 [QL] HEMOGLOBIN A1c Ordered:26-Jan-2016 [QL] HEPATITIS B SURFACE ANTIBODY (QUANT) Ordered:26-Jan-2016 [[facility]] HEPATITIS A AB, TOTAL Ordered:26-Jan-2016 [QL] HEPATITIS PANEL Ordered:26-Jan-2016 Liver [id number] Ordered:26-Jan-2016 Immunization Name Dates Details Influenza Administered on:19-Jan-2011 Lot #:[id number] Influenza Administered on:08-Apr-2013 Lot #:[id number] Fluzone Quadrivalent 0.5 ML Intramuscular Suspension Administered on:2015 Lot #:[id number] Fluzone Quadrivalent 0.5 ML Intramuscular Suspension Prefilled Syringe Administered on:26-Jan-2016 Lot #:[id number] Family History Mother Name Dates Details Family [...] 2.37m2 Status: Results Date Description Value Details 27-Jan-2016 10:10 [[facility]] HEPATITIS PANEL Hep A Ab, IgM Negative Range: Negative HBsAg Screen Negative Range: Negative Hep B Core Ab, IgM Negative Range: Negative Hep C Virus Ab <0.1 s/co ratio Range: 0.0-0.9 Comments:Negative: < 0.8 Indeterminate: 0.8 - 0.9 Positive: > 0.9 . The CDC recommends that a positive HCV antibody result be followed up with a HCV Nucleic Acid Amplification test ([id number]). 10:10 [[facility]] HEPATITIS B SURFACE ANTIBODY (QUANT) Hep B Surface Ab, Qual Non Reactive Comments:Non Reactive: Inconsistent with immunity, less than 10 mIU/mL Reactive: Consistent with immunity,greater than 9.9 mIU/mL 10:10 [[facility]] HEPATITIS A AB, TOTAL Hep A Ab, Total Negative Range: Negative Plan of Care Planned Observations Name Dates Details Planned Goals not documented Goal Instructions Instructions not documented Encounters Appointment; Libr[facility] [...]
--- OUTSIDE RECORDS SUMMARY | 2016-12-28 08:10 | XMS | Summary of Care ---
:1975 Author Name Shira Juarez Address Unavailable Unavailable , Care Team Providers Name Role Phone Librado Hollins Unavailable Unavailable Shira Jaurez Unavailable Unavailable SARAHI GODINEZ Unavailable Unavailable TAHIRA [...] TAKE 1 TABLET DAILY DIRECTED. Quantity:90 Refills:1 GunjanLibrado N.P. [id number] ActiveRosuvastatin Calcium 10 MG Oral Tablet TAKE ONE (1) TABLET(S) BY MOUTH ONCE A DAY. Quantity:90 Refills:3 Gunjan Librado N.Ana [id number] VjxhukJivoz-8-hoqf Ethyl Esters 1 GM Oral Capsule TAKE TWO (2) CAPSULE(S) BY MOUTH TWICE A DAY. Quantity:360 Refills:0 Librado Hollins N.Ana [id number] ActiveFenofibrate 145 MG Oral Tablet TAKE 1 TABLET DAILY. Quantity:90 Refills:1 Librado Hollins.Ana [id number] ActiveOLANZapine 5 MG Oral Tablet TAKE ONE (1) TABLET(S) BY MOUTH AT BEDTIME. TAKE WITH OLANZAPINE 20 MG. Quantity:90 Refills:0 SARAHI GODINEZ M.D. [id number] MtvlroYifcf-3-ffhk Ethyl Esters 1 GM Oral Capsule TAKE 2 CAPSULE EVERY 12 HOURS Quantity:360 Refills:3 AlpeshevelineLibrado miranda N.PMarco Yihcxhv92-[id number] ActiveFenofibrate 145 MG Oral Tablet TAKE one (1) tablet(s) by mouth every day. Quantity:90 Refills:3 Sarahmadeleinenj Librado N.Ana Xjiswnt97-Cau-[id number] ActiveOLANZapine 20 MG Oral Tablet TAKE ONE (1) TABLET(S) BY MOUTH AT BEDTIME ALONG WITH OLANZAPINE 5MG. Quantity:90 Refills:0 SARAHI GODINEZ M.D. [id number]-[id number] Active Allergies and Adverse Reactions Name Dates [...] of Creation Of Ventriculo-Peritoneal CSF Shunt [[facility]] LIPID PANEL Ordered:03-May-2016 [[facility]] CMP W/EGFR Ordered:03-May-2016 [[facility]] HEMOGLOBIN A1c Ordered:03-May-2016 Liver [id number] Ordered:03-May-2016 Immunization Name Dates Details Influenza Administered on:19-Jan-2011 Lot #:[id number] Influenza Administered on:08-Apr-2013 Lot #:[id number] Fluzone Quadrivalent 0.5 ML Intramuscular Suspension Administered on:2015 Lot #:[id number] Fluzone Quadrivalent 0.5 ML Intramuscular Suspension Prefilled Syringe Administered on:26-Jan-2016 Lot #:[id number] Family History Mother Name Dates Details Family [...] Goal Planned Encounters Appointment; Provider: Librado Hollins [id number] 10:45 Interventions Provided Medication ChangesRosuvastatin Calcium 10 MG Oral Tablet - Renew Instructions Instructions not documented Encounters Appointment; Librado Hollins [id number] Encounter Diagnosis:Problem not documented 11:15 Appointment; SARAHI [...]
--- OUTSIDE RECORDS SUMMARY | 2016-12-28 08:10 | XMS | Summary of Care ---
:1975 Author Name Gunjan Librado Address Unavailable Unavailable , Care Team Providers Name Role Phone Gunjan [...] every evening. Quantity:180 Refills:1 SARAHI GODINEZ M.D. [id number] ActiveSertraline HCl - 100 MG Oral Tablet TAKE ONE (1) TABLET(S) BY MOUTH TWICE A DAY. Quantity:60 Refills:2 SARAHI GODINEZ M.D. Knwusyk2-[id number]-2447 ActiveLevothyroxine Sodium 100 MCG Oral Tablet TAKE 1 TABLET DAILY DIRECTED. Quantity:90 Refills:1 Librado Hollins N.P. [id number] ActiveRosuvastatin Calcium 10 MG Oral Tablet TAKE ONE (1) TABLET(S) BY MOUTH ONCE A DAY. Quantity:90 Refills:1 Gunjan Librado N.PMarco [id number] UptnnuRyzgb-1-vmwz Ethyl Esters 1 GM Oral Capsule TAKE 2 CAPSULES TWICE DAILY. Quantity:360 Refills:1 AlpeshevelineLeonel mirandain N.P.ActiveFenofibrate 145 MG Oral Tablet TAKE 1 TABLET DAILY. Quantity:90 Refills:1 GunjanLeonelin N.P. Gjxhskh2-[id number] ActiveOLANZapine 5 MG Oral Tablet TAKE ONE (1) TABLET(S) BY MOUTH AT BEDTIME. TAKE WITH OLANZAPINE 20 MG. Quantity:30 Refills:2 SARAHI GODINEZ M.D. [id number]-[id number] GjzrupUytxr-2-wmsu Ethyl Esters 1 GM Oral Capsule TAKE 2 CAPSULE EVERY 12 HOURS Quantity:360 Refills:3 AlpeshevelineLibrado miranda N.PMarco Mbsiitf91-Rtoe-8235 ActiveFenofibrate 145 MG Oral Tablet TAKE one (1) tablet(s) by mouth every day. Quantity:90 Refills:0 Alpeshjennifer Librado N.PMarco Htsfhpg30-Uie-1246 ActiveOLANZapine 20 MG Oral Tablet TAKE ONE (1) TABLET(S) BY MOUTH AT BEDTIME ALONG WITH OLANZAPINE 5MG. Quantity:30 Refills:2 SARAHI GODINEZ M.D. [id number] Active Allergies and Adverse Reactions Name Dates [...] CMP W/EGFR Ordered:26-Jan-2016 [[facility]] HEMOGLOBIN A1c Ordered:26-Jan-2016 [[facility]] HEPATITIS B SURFACE ANTIBODY (QUANT) Ordered:26-Jan-2016 [[facility]] HEPATITIS A AB, TOTAL Ordered:26-Jan-2016 [[facility]] HEPATITIS PANEL Ordered:26-Jan-2016 Liver [id number] Ordered:26-Jan-2016 Immunization Name Dates Details Influenza Administered on:19-Jan-2011 Lot #:[id number] Influenza Administered on:08-Apr-2013 Lot #:[id number] Fluzone Quadrivalent 0.5 ML Intramuscular Suspension Administered on:2015 Lot #:[id number] Fluzone Quadrivalent 0.5 ML Intramuscular Suspension Prefilled Syringe Administered on:26-Jan-2016 Lot #:[id number] Family History Mother Name Dates Details Family [...] Status: Results Date Description Value Details 12-Jan-2016 [[facility]] COMPREHENSIVE 09:20 METABOLIC PANEL W/O eGFR Glucose, Serum 78 [...] Range: 39-117 AST (SGOT) 50 IU/L (Above high Range: 0-40 threshold) ALT (SGPT) 52 IU/L (Above high Range: 0-44 threshold) 09:20 [[facility]] LIPID PANEL Cholesterol, Total 153 mg/dL Range: 100-199 Triglycerides 243 mg/dL (Above Range: 0-149 high threshold) HDL Cholesterol 21 mg/dL (Below low Range: >39 threshold) Comments:According to ATP-III Guidelines, HDL-C >59 mg/dL is considered anegative risk factor for CHD. VLDL Cholesterol Oleg 49 mg/dL (Above Range: 5-40 high threshold) LDL Cholesterol Calc 83 mg/dL Range: 0-99 Comment: LDL/HDL Ratio 4.0 ratio unit Range: 0.0-3.6 (Above high Comments:LDL/HDL Ratio Men Women 1/2 Avg.Risk 1.0 1.5 threshold) Avg.Risk 3.6 3.2 2X Avg.Risk 6.2 5.0 3X Avg.Risk 8.0 6.1 09:20 [[facility]] HEMOGLOBIN A1c Hemoglobin A1c 5.9 % (Above high Range: 4.8-5.6 threshold) Comments:. Pre-diabetes: 5.7 - 6.4 Diabetes: > 6.4 Glycemic control for adults with diabetes: <7.0 09:20 [[facility]] VALPROIC ACID Valproic Acid 90 ug/mL Range: 50-100 (Depakote),S Comments:Detection Limit=4 <4 indicates None Detected . Toxicity may occur at levels of 100-500. Measurements of free unbound valproic acid may improve the assess- ment of clinical response. 27-Jan-2016 [[facility]] HEPATITIS PANEL 10:10 Hep A Ab, IgM Negative Range: Negative HBsAg Screen Negative Range: Negative Hep B Core Ab, IgM Negative Range: Negative Hep C Virus Ab <0.1 s/co ratio Range: 0.0-0.9 Comments:Negative: < 0.8 Indeterminate: 0.8 - 0.9 Positive: > 0.9 . The CDC recommends that a positive HCV antibody result be followed up with a HCV Nucleic Acid Amplification test (022323). 10:10 [[facility]] HEPATITIS B SURFACE ANTIBODY (QUANT) Hep B Surface Ab, Qual Non Reactive Comments:Non Reactive: Inconsistent with immunity, less than 10 mIU/mL Reactive: Consistent with immunity,greater than 9.9 mIU/mL 10:10 [[facility]] HEPATITIS A AB, TOTAL Hep A Ab, [...]
--- NOTE | 2016-12-28 11:22 | CT ---
CT BRAIN WITHOUT CONTRAST: History: Lethargy. Patient has a M1A1 TANK CREWMAN shunt. Technique: The patient has a right posterior approach ventriculostomy catheter with its tip in the l eft lateral ventricle. No hydrocephalus is seen. There is encephalomalacia in both frontal lobes and both temporal lobes. No intracranial hemorrhage is seen. No new large confluent infarction is seen. The calvarium and overlying soft tissues are unremarkable. The visualized paranasal sinuses and mast oid air cells are well aerated. IMPRESSION: 1. No evidence of acute intracranial abnormality. 2. M1A1 TANK CREWMAN shunt appears in good position and without evidence of hydrocephalus. 3. Encephalomalacia in the frontal lobes and temporal lobes. POS: [facility]
--- NOTE | 2016-12-28 12:50 | RAD ---
SHUNTOGRAM: History: Lethargy. 41-year-old with ventriculoperitoneal shunt. Technique: AP skull and soft tissue neck, AP view chest, lateral view soft tissue neck, lateral view chest, AP abdomen, lateral view of the abdomen. FINDINGS: There is a large amount of stool in the colon. There is a right sided intracranial ventricular shunt which has a segment absent from the point wher e it leaves the skull until the C3 level. The shunt extends along the lateral aspect of the soft tis sues of the neck extending along the anterior aspect of the chest extending into the right pleural s urface. This is compatible with a ventricular thoracic type shunt. The proximal portion along the la teral aspect of the neck and scalp appears to have disrupted and does not communicate with the intra cranial portion and the right pleural surface. A small right sided pleural effusion is present. The left lung is well aerated. POS: [facility]
== END 2016-12-28 08:07 | disposition home or self-care (01) ==
LOC: EEG 08:06
PROVIDERS: ATTEND Student in an Organized Health Care Education/Training Program
DX: S06.9X0A Unspecified intracranial injury without loss of consciousness, initial encounter (principal); R53.83 Other fatigue; Z98.2 Presence of cerebrospinal fluid drainage device; G93.89 Other specified disorders of brain; J90 Pleural effusion, not elsewhere classified
CPT/HCPCS: 70450; 75809; 95816

== ENCOUNTER 2017-01-25 08:21 | Outpatient (CLI) | payer MEDICARE, MEDICAID ==
--- NOTE | 2017-01-25 10:44 | CT ---
CT HEAD WITHOUT CONTRAST: Technique: Multiple tomograms obtained through head without IV enhancement. History: Hydrocephalus. Comparison: 12-28-16 FINDINGS: Volume loss is again noted in the right middle cranial fossa in both inferior frontal lobes. Mild vo lume loss in the left middle cranial fossa also noted. Shunt catheter is again seen entering via the right parietal lobe. This catheter crosses the midline and the tip of the catheter extends beyond t he wall of the left lateral ventricle. It is unchanged in position from 12-28-16. The ventricles are upper normal size and stable when compared to 12-28-16. There are post op changes involving the skull . IMPRESSION: Stable findings when compared to 12-28-16. POS: [facility]
== END 2017-01-25 08:22 | disposition home or self-care (01) ==
LOC: TBSIIMAG 08:21
PROVIDERS: ATTEND Neurological Surgery
DX: G91.9 Hydrocephalus, unspecified (principal)
CPT/HCPCS: 70450

== ENCOUNTER 2017-06-29 11:52 | Emergency (ER) | payer MEDICARE, MEDICAID ==
--- NOTE | 2017-06-29 12:22 | CT ---
CT BRAIN NONCONTRAST: DATE: 06/29/17 TIME: 1203 hours HISTORY: 41-year-old male with acute stroke symptoms: dysarthria. This STAT stroke alert protocol CT report was called to Dr. Kay of the emergency department at 1207 hours on 06/29/17. COMPARISON: 01/25/17. FINDINGS: There is no interval change. Moderate to large symmetrical regions of bilateral anterior inferior fro ntal lobe encephalomalacia and gliosis representing sequelae of prior trauma. Moderately large region of right anterior temporal lobe encephalomalacia and gliosis. Old right frontotemporal craniotomy ch anges. Old left parietal craniotomy changes. HUMAN RESOURCES CONSULTANT shunt catheter enters through a right parietal bur ho le, traversing the midline posterior to the splenium of the corpus callosum, traversing the posterior body of the left lateral ventricle, with distal tip embedded in the region of the posterior limb of the left internal capsule. No significant ventriculomegaly. No acute intra-axial or extra-axial hemor rhage. No mass effect, midline shift, or extra-axial fluid collection. IMPRESSION: 1. No interval change compared to 01/25/17. 2. Ventriculoperitoneal shunt catheter. 3. Bilateral old craniotomy changes. 4. Moderately large regions of old traumatic brain injury: bilateral frontal lobes and right tempora l lobe. CODE CR. JN Jeaneth POS: [facility]
[2017-06-29 12:33] LABS: #Basophils 0.1 thou/uL (0.0-0.2); #Eosinphils 0.3 thou/uL (0.0-0.7); #Lymphocytes 3.7 thou/uL (1.20-3.40); #Monocytes 1.1 thou/uL (0.11-0.59); #Neutrophils 3.5 thou/uL (1.40-6.50); %Basophils 1.1 % (0.0-1.0); %Eosinophils 3.1 % (0.0-10.0); %Lymphocytes 42.3 % (21.0-51.0); %Neutrophils 40.5 % (42.0-75.0); Hemoglobin 13.3 g/dL (14.0-18.0); Mean Corpuscular HGB CONC 32.4 g/dL (32.0-36.0); Mean Platelet Volume 6.5 fL (7.4-10.4); Platelet Count 250 thou/uL (130-400); RBC Distribution Width 12.3 % (11.5-14.5); Red Blood Cell (RBC) Count 4.03 mill/uL (4.70-6.10); White Blood Cell (WBC) Count 8.7 thou/uL (4.8-10.8)
[2017-06-29 12:37] LABS: INR-International Normal Ratio 1.1; PTT 29.3 SEC (22.9-36.1); Prothrombin Time 14.5 SEC (12.0-14.7)
[2017-06-29 12:51] LABS: ALT (SGPT) 23 U/L (8-55); AST (SGOT) 27 U/L (5-34); Albumin 4.1 g/dL (3.5-5.0); Alkaline Phosphatase 48 U/L (40-150); Anion Gap 9 mmol/L (10-20); BUN (Urea Nitrogen) 16 mg/dL (8.9-20.6); Bilirubin, Total 0.3 mg/dL (0.2-1.2); Calc. Creatinine Clearance 0 mL/min (70-130); Calcium 9.5 mg/dL (7.8-10.44); Carbon Dioxide 33 mmol/L (22-29); Chloride 102 mmol/L (98-107); Estimated GFR-MDRD Greater than 90; Globulin 2.5 g/dL (2.4-3.5); Glucose 94 mg/dL (70-105); Potassium 3.8 mmol/L (3.5-5.1); Protein, Total 6.6 g/dL (6.0-8.3); Sodium 140 mmol/L (136-145)
[2017-06-29 12:59] LABS: Bilirubin Negative (Negative); Blood, Urine Negative (Negative); Clarity CLEAR (Clear); Glucose, Urine (Dipstick) Negative (Negative); Leukocyte Negative (Negative); Nitrite Negative (Negative); Protein, Urine (Dipstick) Negative (Neg-Trace); Specific Gravity, Urine 1.014 (1.002-1.036)
[2017-06-29 13:02] LABS: Acetaminophen Less than 6.0 mcg/mL (10.0-30.0); Alcohol Less than 10 mg/dL (Less than 10); Salicylate Less than 8.0 mg/dL (15.0-30.0)
[2017-06-29 13:12] LABS: Amphetamine Not Detected (NotDetected); Barbiturates Screen Not Detected (NotDetected); Benzodiazepine Screen Not Detected (NotDetected); Cocaine Metabolite Screen Not Detected (NotDetected); Medtox Control Line Valid? VALID (VALID); Medtox Reader # READER 1; Methadone Not Detected (NotDetected); Methamphetamine Not Detected (NotDetected); Opiate Screen Not Detected (NotDetected); Oxycodone Screen Not Detected (NotDetected); Phencyclidine (PCP) Not Detected (NotDetected); THC/Cannabinoid Screen Not Detected (NotDetected); Tricyclic Screen Not Detected (NotDetected)
--- NOTE | 2017-06-29 13:52 | RAD ---
RADIOGRAPH SHUNTOGRAM HEAD 2 VIEW NECK 1 VIEW CHEST 1 VIEW ABDOMEN 1 VIEW: DATE: 06/29/17. HISTORY: A 41-year-old male with altered mental status. COMPARISON: Shuntogram of 12/28/16. FINDINGS: Left pterional and right parietal old craniotomy changes. LEAN MANUFACTURING SPECIALIST shunt catheter enters the intracranial cavity through a right parietal hien hole, with distal tip to the left of midline. There is a long r adiolucent (radiographically invisible) segment of the LEAN MANUFACTURING SPECIALIST shunt catheter from the level of the pariet al bone to the C3-4 level of the right neck soft tissues. The catheter descends the right chest, wit h a short distal portion overlying the right hemidiaphragm. There is chronic blunting of the right l ateral costophrenic angle suggestive of a chronic small right pleural effusion (versus pleural thicke matthew). There is architectural distortion and pulmonary scarring at the right medial lung base, uncha nged. The rest of the visualized lung short are clear. Only the upper aspect of the abdomen was im aged. A moderate amount of colonic stool. IMPRESSION: 1. Right-sided ventriculoperitoneal shunt catheter with a short distal portion projecting over the r ight hemidiaphragm. It is uncertain whether this LEAN MANUFACTURING SPECIALIST shunt catheter is in the right pleural space or within the peritoneal cavity. 2. The presence of what appears to be a persistent, chronic small right pleural effusion raises the possibility that the catheter does terminate in the pleural space. 3. Pulmonary scar at the right medial lung base. 4. No evidence of disruption of the radiopaque portions of the ventriculoperitoneal shunt catheter. The long radiolucent segment in the neck cannot be evaluated. POS: [facility]
--- NOTE | 2017-07-18 15:17 | EKG ---
Test Reason : ER INDICATION Blood Pressure : / mmHG Vent. Rate : 066 BPM Atrial Rate : 066 BPM P-R Int : 154 ms QRS Dur : 100 ms QT Int : 406 ms P-R-T Axes : 030 050 031 degrees QTc Int : 425 ms Normal sinus rhythm Normal ECG Confirmed by DAYA SALDIVAR ([id number]), editorial director KEEGAN RAE ([id number]) on 07/18/2017 3:16:37 PM Referred By: Confirmed By:DAYA SALDIVAR
== END 2017-06-29 15:55 | disposition home or self-care (01) ==
LOC: ERS 11:52
DX: R47.1 Dysarthria and anarthria (principal); E78.00 Pure hypercholesterolemia, unspecified; F41.9 Anxiety disorder, unspecified; F32.9 Major depressive disorder, single episode, unspecified; Z79.899 Other long term (current) drug therapy
CPT/HCPCS: 36416; 70450; 75809; 80053; 80306; 80307; 81003; 83735; 84443; 85025; 85610; 85730; 93005

== ENCOUNTER 2017-07-24 13:09 | Outpatient (CLI) | payer MEDICARE, MEDICAID ==
--- NOTE | 2017-07-24 15:02 | ULT ---
ULTRASOUND CAROTID DOPPLER STANDARD: HISTORY: Slurred speech. COMPARISON: None. TECHNIQUE: Real-time, potter scale, color flow, and spectral analysis of the extracranial carotid and vertebral ar teries is performed with a linear ray transducer. Antegrade flow both vertebral arteries. No hemody namically significant stenosis within the internal carotid arteries. Right ICA/CCA ratio is 0.98 and left ICA/CCA ratio 0.61. IMPRESSION: No hemodynamically significant stenosis. POS: [facility]
--- NOTE | 2017-07-25 10:24 | MRI ---
MRI BRAIN WITH AND WITHOUT CONTRAST: Technique: Multiplanar, multisequence imaging of the brain obtained. Post contrast images obtained af ter administration of 15 cc of MultiHance IV. Indication: Traumatic brain injury in 1995 with shunt placement. New stroke symptoms. Mental status c hange. Comparison: CT brain 06-29-17. FINDINGS: Ventricular size is upper normal and stable from 06-29-17. Shunt catheter via the right parietal lobe is again noted. The large areas of encephalomalacia involving both frontal lobes and right temporal l obe which have been previously described. Post op craniotomy changes are noted involving the left par ietal region. White matter gliosis is seen in both frontal lobes. No restricted diffusion. No evidenc e of acute infarct or mass. Intracranial internal carotid arteries and proximal cerebral arteries and basilar arteries show flow voids. No abnormal enhancement identified. Mucosal edema in the left maxillary sinus. IMPRESSION: Post op and post-traumatic changes are again noted in the brain. Ventricular size is stable from the prior CT of 06-29-17. No evidence of acute infarct, hemorrhage, or mass. POS: [facility]
== END 2017-07-24 13:10 | disposition home or self-care (01) ==
LOC: ULT 13:09
PROVIDERS: ATTEND Family Medicine
DX: I87.2 Venous insufficiency (chronic) (peripheral) (principal); J90 Pleural effusion, not elsewhere classified; R47.81 Slurred speech; I07.1 Rheumatic tricuspid insufficiency; Z98.2 Presence of cerebrospinal fluid drainage device; Z98.890 Other specified postprocedural states
CPT/HCPCS: 70553; 93306; 93880

== ENCOUNTER 2017-09-10 10:20 | Inpatient (IN) | payer MEDICARE, MEDICAID ==
[2017-09-10 10:57] LABS: Hemoglobin 12.9 g/dL (14.0-18.0); Mean Corpuscular HGB CONC 32.7 g/dL (32.0-36.0); Mean Corpuscular Hemoglobin 31.8 pg (27.0-31.0); Mean Corpuscular Volume 97.3 fl (80.0-94.0); Mean Platelet Volume 6.1 fL (7.4-10.4); Platelet Count 237 thou/uL (130-400); RBC Distribution Width 12.5 % (11.5-14.5); Red Blood Cell (RBC) Count 4.05 mill/uL (4.70-6.10); White Blood Cell (WBC) Count 27.8 thou/uL (4.8-10.8)
[2017-09-10] MEDS ORDERED: Acetaminophen 500 MG TAB ONE (11:03)
[2017-09-10] MEDS ORDERED: Sodium Chloride 0.9% 100 ML ONE (11:03)
[2017-09-10] MEDS ORDERED: Piperacillin/Tazobactam 4.5 GM VIAL ONE (11:03)
[2017-09-10 11:17] LABS: Band 41 % (5-11); Lymphocytes 7 % (21-51); MDiff Complete? YES; Metamyelocyte 3 % (0-0); Monocytes 13 % (0-10); Neutrophil 35 % (42-75); PLT Morphology Comment Appears Adequate; Reactive Lymphocytes 1 % (0-10); Reflex for Review?? NO; Toxic Granulation SLIGHT; Vacuoles MODERATE
[2017-09-10 11:20] LABS: ALT (SGPT) 16 U/L (8-55); AST (SGOT) 19 U/L (5-34); Albumin 3.8 g/dL (3.5-5.0); Alkaline Phosphatase 44 U/L (40-150); Anion Gap 12 mmol/L (10-20); BUN (Urea Nitrogen) 14 mg/dL (8.9-20.6); Bilirubin, Total 0.4 mg/dL (0.2-1.2); Calc. Creatinine Clearance 0 mL/min (70-130); Calcium 9.8 mg/dL (7.8-10.44); Carbon Dioxide 22 mmol/L (22-29); Chloride 97 mmol/L (98-107); Estimated GFR-MDRD 85; Globulin 3.2 g/dL (2.4-3.5); Glucose 101 mg/dL (70-105); Potassium 3.6 mmol/L (3.5-5.1); Sodium 127 mmol/L (136-145)
--- NOTE | 2017-09-10 11:40 | RAD ---
PORTABLE CHEST ONE VIEW: Date: 09-10-17 Time: 11:00 a.m. History: Chest pain. FINDINGS/IMPRESSION: The heart size is normal. The lungs are expanded without lobar consolidation, pneumothoraces, or larg e effusions. There is no evidence of french pleural edema. Right sided shunt tube is present. POS: [facility]
--- NOTE | 2017-09-10 11:46 | ULT ---
RIGHT LOWER EXTREMITY VENOUS DOPPLER ULTRASOUND: Date: 09/10/17 COMPARISON: None. HISTORY: Right lower extremity pain, edema, and swelling. Evaluate for deep venous thrombosis. TECHNIQUE: Multiplanar Aguilera scale sonographic imaging of the venous structures of the right lower extremity obta ined with color flow and spectral analysis. FINDINGS: Right common femoral vein, greater saphenous vein, profunda femoral vein, femoral vein, popliteal vei n, and posterior tibial vein are patent. There is normal blood flow, augmentation, and compression wi thin the deep venous system on the right, with no evidence for deep venous thrombosis. IMPRESSION: No evidence for deep venous thrombosis of the right lower extremity. POS: [facility]
[2017-09-10 13:55] LABS: Actual Bicarbonate (HCO3a) 22.1 mEq/L (22-28); Base Excess (BEa) -2.3 mEq/L (-2.0 to +3.0); CO2 Tension 36.5 mmHg (35.0-45.0)
[2017-09-10 13:56] LABS: ALV-art Gradient 89.535 (0-20); Analyzer IN Cardio ER; Calcium, Ionized 1.2 mmol/L (1.12-1.30); Hematocrit-ABG 36.6 % (42.0-52.0); Hemoglobin (Hb) 10.9 g/dL (14.0-18.0); Puncture Site RRA
[2017-09-10 14:18] LABS: Bilirubin Negative (Negative); Blood, Urine Trace (Negative); Clarity CLEAR (Clear); Glucose, Urine (Dipstick) Negative (Negative); Leukocyte Negative (Negative); Nitrite Negative (Negative); Protein, Urine (Dipstick) Trace mg/dL (Neg-Trace); Specific Gravity, Urine 1.023 (1.002-1.036); pH, Urine 6.5 (5.0-9.0)
[2017-09-10 14:20] LABS: Bacteria/HPF None Seen HPF (None Seen); Hyaline Casts/LPF 0-3 HYALINE CAST LPF (0-3 Hyaline); Pathc Cast-AUWi Flag 0.14 (0-2.49); Squamous Epithelial 0-3 HPF (0-3); WBC/HPF 0-3 HPF (0-3)
[2017-09-10 14:21] LABS: Renal Epithelial None Seen HPF (0-3); Transitional Epithelial NONE SEEN HPF (0-3)
[2017-09-10] MEDS ORDERED: Ondansetron ODT 4 MG TAB SL PRN (14:48)
[2017-09-10] MEDS ORDERED: Ondansetron HCl/PF 4 MG/2 ML Vial IVP PRN (14:48)
[2017-09-10] MEDS: Sodium Chloride 0.9% 1,000 ML IV SCH ×2 (17:17→18:14)
[2017-09-10] MEDS ORDERED: Piperacillin/Tazobactam 4.5 GM in Sodium Chloride 0.9% 100 ML IVPB SCH (18:00)
[2017-09-10] MEDS: Piperacillin/Tazobactam 4.5 GM in Sodium Chloride 0.9% 100 ML IVPB SCH ×2 (18:02→23:59)
[2017-09-10] MEDS: Sodium Chloride 0.45% 1,000 ML IV SCH (18:03)
[2017-09-10] MEDS: OLANZapine 5 MG TAB PO SCH (20:37)
[2017-09-10] MEDS ORDERED: Adacel (T-DAP) 0.5 ML VIAL IM ONE (21:00)
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
[2017-09-10] MEDS ORDERED: HYDROcodone/Acetaminophen 7.5/325 mg Tablet PO PRN ×2 (21:42→21:43)
[2017-09-10] MEDS: Acetaminophen 500 MG TAB PO PRN (22:11)
[2017-09-10] MEDS: Vancomycin HCl 1 GM in Premix Bag 1 BAG IVPB SCH (22:23)
[2017-09-10] MEDS ORDERED: Vancomycin HCl 1 GM in Premix Bag 1 BAG IVPB SCH (23:00)
[2017-09-11] MEDS: Sodium Chloride 0.45% 1,000 ML IV SCH ×3 (04:50→18:01)
[2017-09-11] MEDS: Levothyroxine Sodium 125 MCG TAB PO SCH (05:01)
[2017-09-11] MEDS: Piperacillin/Tazobactam 4.5 GM in Sodium Chloride 0.9% 100 ML IVPB SCH ×4 (05:01→23:50)
[2017-09-11 05:40] LABS: Anion Gap 12 mmol/L (10-20); BUN (Urea Nitrogen) 10 mg/dL (8.9-20.6); CRP (Inflammatory) 31.77 mg/dL (= or < 0.5); Calc. Creatinine Clearance 189 mL/min (70-130); Calcium 8.9 mg/dL (7.8-10.44); Carbon Dioxide 22 mmol/L (22-29); Chloride 99 mmol/L (98-107); Estimated GFR-MDRD Greater than 90; Glucose 85 mg/dL (70-105); Potassium 3.3 mmol/L (3.5-5.1); Sodium 130 mmol/L (136-145)
[2017-09-11 06:13] LABS: Band 37 % (5-11); Lymphocytes 7 % (21-51); MDiff Complete? YES; Mean Corpuscular HGB CONC 34.2 g/dL (32.0-36.0); Mean Corpuscular Volume 96.5 fl (80.0-94.0); Mean Platelet Volume 6.1 fL (7.4-10.4); Metamyelocyte 1 % (0-0); Monocytes 9 % (0-10); Neutrophil 46 % (42-75); Platelet Count 192 thou/uL (130-400); RBC Distribution Width 12.5 % (11.5-14.5); Red Blood Cell (RBC) Count 3.33 mill/uL (4.70-6.10); White Blood Cell (WBC) Count 27.4 thou/uL (4.8-10.8)
[2017-09-11] MEDS ORDERED: Potassium Chloride 20 MEQ TAB PO SCH (07:45)
[2017-09-11] MEDS: Aspirin 325 MG TAB PO SCH (08:07)
[2017-09-11] MEDS: Fenofibrate Nanocrystallized 145 MG TAB PO SCH (08:07)
[2017-09-11] MEDS: Rosuvastatin 10 MG TAB PO SCH (08:07)
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
[2017-09-11] MEDS: Vancomycin HCl 1 GM in Premix Bag 1 BAG IVPB SCH (11:02)
[2017-09-11 12:01] VITALS: BMI 35.1
[2017-09-11] MEDS: Acetaminophen 500 MG TAB PO PRN (15:25)
[2017-09-11] MEDS ORDERED: Lactated Ringer's 1,000 ML IV SCH (17:15)
[2017-09-11] MEDS: Vancomycin HCl 1.5 GM in Sodium Chloride 0.9% 250 ML 300 ML IVPB SCH ×3 (17:52→20:04)
[2017-09-11 18:39] LABS: ALT (SGPT) 13 U/L (8-55); AST (SGOT) 16 U/L (5-34); Albumin 3.1 g/dL (3.5-5.0); Alkaline Phosphatase 54 U/L (40-150); Anion Gap 11 mmol/L (10-20); BUN (Urea Nitrogen) 9 mg/dL (8.9-20.6); Bilirubin, Total 0.4 mg/dL (0.2-1.2); Calc. Creatinine Clearance 191 mL/min (70-130); Calcium 9.3 mg/dL (7.8-10.44); Carbon Dioxide 23 mmol/L (22-29); Chloride 97 mmol/L (98-107); Estimated GFR-MDRD Greater than 90; Glucose 99 mg/dL (70-105); Potassium 3.2 mmol/L (3.5-5.1); Protein, Total 6.1 g/dL (6.0-8.3); Sodium 128 mmol/L (136-145)
[2017-09-11] MEDS: OLANZapine 5 MG TAB PO SCH (20:00)
[2017-09-12] MEDS: Sodium Chloride 0.45% 1,000 ML IV SCH ×2 (04:26→20:32)
[2017-09-12] MEDS: Vancomycin HCl 1.5 GM in Sodium Chloride 0.9% 250 ML 300 ML IVPB SCH ×3 (04:50→20:33)
[2017-09-12 05:50] LABS: Anion Gap 11 mmol/L (10-20); BUN (Urea Nitrogen) 8 mg/dL (8.9-20.6); Calc. Creatinine Clearance 215 mL/min (70-130); Calcium 9.5 mg/dL (7.8-10.44); Carbon Dioxide 27 mmol/L (22-29); Chloride 102 mmol/L (98-107); Estimated GFR-MDRD Greater than 90; Glucose 82 mg/dL (70-105); Magnesium 1.9 mg/dL (1.6-2.6); Potassium 3.6 mmol/L (3.5-5.1); Sodium 136 mmol/L (136-145)
[2017-09-12 06:01] LABS: CRP (Inflammatory) 33.52 mg/dL (= or < 0.5)
[2017-09-12 06:50] LABS: Mean Corpuscular HGB CONC 34.8 g/dL (32.0-36.0); Mean Corpuscular Hemoglobin 33.7 pg (27.0-31.0); Mean Corpuscular Volume 96.8 fl (80.0-94.0); Mean Platelet Volume 6.8 fL (7.4-10.4); Platelet Count 173 thou/uL (130-400); RBC Distribution Width 12.7 % (11.5-14.5); Red Blood Cell (RBC) Count 3.27 mill/uL (4.70-6.10); White Blood Cell (WBC) Count 26.4 thou/uL (4.8-10.8)
[2017-09-12] MEDS: Piperacillin/Tazobactam 4.5 GM in Sodium Chloride 0.9% 100 ML IVPB SCH ×3 (07:28→18:32)
[2017-09-12] MEDS: Levothyroxine Sodium 125 MCG TAB PO SCH (07:29)
[2017-09-12 07:48] LABS: Band 45 % (5-11); Lymphocytes 4 % (21-51); MDiff Complete? YES; Metamyelocyte 4 % (0-0); Monocytes 11 % (0-10); Myelocyte 1 % (0-0); Neutrophil 34 % (42-75); PLT Morphology Comment Appears Adequate; Polychromasia SLIGHT = 2-3 cells (100X) (0-2/hpf); Reactive Lymphocytes 1 % (0-10); Toxic Granulation SLIGHT; Vacuoles SLIGHT
[2017-09-12] MEDS: Acetaminophen 500 MG TAB PO PRN (09:59)
[2017-09-12] MEDS: Potassium Chloride 20 MEQ TAB PO SCH ×2 (10:00→18:32)
[2017-09-12] MEDS: Rosuvastatin 10 MG TAB PO SCH (10:01)
[2017-09-12] MEDS: Aspirin 325 MG TAB PO SCH (10:01)
[2017-09-12] MEDS: Fenofibrate Nanocrystallized 145 MG TAB PO SCH (10:01)
--- NOTE | 2017-09-12 18:04 | PRG ---
DATE OF SERVICE: 09/12/2017 HISTORY OF PRESENT ILLNESS: The patient is still requiring oxygen per nasal cannula to remain comfor table. He has had better breathing status, has not had any cough or sputum production, still remaini ng with fevers, treated with Tylenol, still remains fatigued, unable to get up to the restroom using bedside urinal currently. He is tolerating some oral intake at this point in time. PHYSICAL EXAMINATION: VITAL SIGNS: Temperature of 100.4, pulse of 90, respiratory rate of 14, oxygen saturation 95% on 2 l iters nasal cannula, blood pressure 126/70. GENERAL: The patient is fatigued, arousable, oriented, no acute distress. HEENT: Normocephalic. Nasal cannula in place. NECK: Supple. HEART: Regular rate and rhythm at time of exam. No murmurs auscultated. LUNGS: Clear to auscultation bilaterally. No rubs or wheezes. ABDOMEN: Protuberant, soft, positive bowel sounds throughout. EXTREMITIES: Right still with erythema and pallor; however, pallor is slightly reduced from prior er ythema, edges are marked with a marking pen today, still with pitting edema to right lower extremity. SKIN: Abrasions and ulcerations with crusting without exudates or fluctuance. NEUROLOGIC: The patient is alert and oriented to time exam. No focal deficits. Speech is normal. LABORATORY DATA: White blood cell count of 26.4, hemoglobin of 11.0, platelet count of 173. Environmental Permitting Specialist ry: Sodium 136, potassium of 3.6, chloride of 102, creatinine of 0.66, magnesium of 1.9. CRP of 33. Urine culture negative at 36 hours. Blood cultures x2 negative at 48 hours. ASSESSMENT AND PLAN: Sepsis secondary to spread of cellulitis from right lower extremity puncture, p uncture wound . The patient is tolerating vancomycin, Zosyn and doxycycline. Continuing Tyleno l for fever coverage. Continuing IV fluids. We will followup on a skin marking pen today. Patient clinically looks better, although white blood cell count is not improved. patient's electrolytes are better after lactating Ringer's bolus yesterday. We will continue to follow with IV antibiotics unt il resolved, leukocytosis and consider transition to orals and evaluation for patient's deconditionin g with physical therapy once he breaks his fever and his white blood cell count, continuing patient's other home medications at this point in time.
[2017-09-12 19:31] LABS: Vancomycin, Trough 9.9 ug/mL
[2017-09-12] MEDS: OLANZapine 5 MG TAB PO SCH (20:34)
[2017-09-13] MEDS: Piperacillin/Tazobactam 4.5 GM in Sodium Chloride 0.9% 100 ML IVPB SCH ×4 (00:26→17:04)
[2017-09-13] MEDS: Sodium Chloride 0.45% 1,000 ML IV SCH ×3 (00:29→16:48)
[2017-09-13] MEDS: ICOSAPENT ETHYL 1 GM PO SCH ×4 (00:46→16:53)
[2017-09-13] MEDS: Vancomycin HCl 1.75 GM in Sodium Chloride 0.9% 500 ML IVPB SCH ×3 (04:20→21:13)
[2017-09-13 05:51] LABS: Anion Gap 9 mmol/L (10-20); BUN (Urea Nitrogen) 9 mg/dL (8.9-20.6); CRP (Inflammatory) 23.09 mg/dL (= or < 0.5); Calc. Creatinine Clearance 204 mL/min (70-130); Carbon Dioxide 32 mmol/L (22-29); Chloride 100 mmol/L (98-107); Estimated GFR-MDRD Greater than 90; Glucose 80 mg/dL (70-105); Potassium 3.9 mmol/L (3.5-5.1); Sodium 137 mmol/L (136-145)
[2017-09-13 06:28] LABS: Hemoglobin 10.5 g/dL (14.0-18.0); Mean Corpuscular HGB CONC 32.9 g/dL (32.0-36.0); Mean Corpuscular Hemoglobin 32.6 pg (27.0-31.0); Mean Corpuscular Volume 99.1 fl (80.0-94.0); Mean Platelet Volume 6.4 fL (7.4-10.4); Platelet Count 160 thou/uL (130-400); RBC Distribution Width 12.9 % (11.5-14.5); Red Blood Cell (RBC) Count 3.22 mill/uL (4.70-6.10); White Blood Cell (WBC) Count 21.4 thou/uL (4.8-10.8)
[2017-09-13 06:29] LABS: Band 24 % (5-11); Lymphocytes 10 % (21-51); MDiff Complete? YES; Macrocytosis SLIGHT = 6-15 cells (100X) (0-5/hpf); Monocytes 12 % (0-10); Neutrophil 51 % (42-75); PLT Morphology Comment Appears Adequate; Reactive Lymphocytes 3 % (0-10)
[2017-09-13] MEDS: Levothyroxine Sodium 125 MCG TAB PO SCH (06:54)
[2017-09-13] MEDS: Aspirin 325 MG TAB PO SCH (08:45)
[2017-09-13] MEDS: Fenofibrate Nanocrystallized 145 MG TAB PO SCH (08:47)
[2017-09-13] MEDS: Potassium Chloride 20 MEQ TAB PO SCH ×2 (08:47→16:52)
[2017-09-13] MEDS: Rosuvastatin 10 MG TAB PO SCH (08:48)
--- NOTE | 2017-09-13 18:15 | PRG ---
DATE OF SERVICE: 09/13/2017 HISTORY OF PRESENT ILLNESS: The patient is now afebrile x24 hours, has started to have mild sputum production, tracy in color. The patient denies any shortness of breath, has been maintained on 2 liters nasal cannula. Right lower extremity remains warm and erythematous. LABORATORY DATA: Vancomycin trough 9.9. Sodium 137, potassium of 3.9, chloride of 100, creatinine 0.71, glucose of 80. CRP 23.09, white blood cell count of 21.4, hemoglobin of 10.5, platelet count of 160. OBJECTIVE: VITAL SIGNS: Temperature 98.3, pulse 70, respiratory rate of 16, oxygen saturation 96% on 2 liters nasal cannula, blood pressure 109/68. GENERAL: The patient is alert, oriented, no acute distress. HEENT: Normocephalic. Nasal cannula in place, erythematous changes to the lips , upper and lower. NECK: Supple. HEART: Regular rate and rhythm. No murmurs auscultated. LUNGS: With coarse bronchial breath sounds lower lung short clear to auscultation bilaterally. No rubs or wheezes. ABDOMEN: Protuberant, some bloating noted, nontender, however. EXTREMITIES: Right lower extremity with continued pitting edema, erythema, and pallor. Marking pen yesterday, slight satellite lesions extending outwards; however, some lessening of redness in certain locations; however, edema and pallor remain prominent. NEUROLOGIC: The patient is alert and oriented x3, no focal deficits. Speech is normal. ASSESSMENT AND PLAN: Sepsis secondary to cellulitis barbed wire entry. Continuing IV antibiotics, IV fluids, following up on a daily CBC and CMP. We will look to transition to oral antibiotics likely Sunday. Consulting physical therapy for deconditioning secondary to sepsis for potential placement planning based on the patient's level of function. If patient continues to do well, we will discontinue IV fluids tomorrow. Continue patient's other home medications , adding a stool softener at this point in time for mild constipation symptoms and bloating. We will progress to a laxative tomorrow as needed. ASA prophylaxsis increased to 40mg lovenox. Compressive wrap to RLE with neuro/ vascular checks of dorsalis pedis pulses ordered and communicated to nursing staff yesterday prior to shift change. [facility]
[2017-09-13] MEDS: Enoxaparin Sodium 40 MG/0.4 ML SYRINGE SC SCH (21:14)
[2017-09-13] MEDS: OLANZapine 5 MG TAB PO SCH (21:15)
[2017-09-14] MEDS: Piperacillin/Tazobactam 4.5 GM in Sodium Chloride 0.9% 100 ML IVPB SCH ×5 (00:28→23:31)
[2017-09-14] MEDS: Sodium Chloride 0.45% 1,000 ML IV SCH (01:43)
[2017-09-14 03:22] LABS: Vancomycin, Trough 17.1 ug/mL
[2017-09-14 03:30] LABS: Band 27 % (5-11); Eosinophils 1 % (0-10); Hemoglobin 10.3 g/dL (14.0-18.0); Lymphocytes 24 % (21-51); MDiff Complete? YES; Mean Corpuscular HGB CONC 33.3 g/dL (32.0-36.0); Mean Corpuscular Hemoglobin 33.1 pg (27.0-31.0); Mean Corpuscular Volume 99.6 fl (80.0-94.0); Mean Platelet Volume 6.4 fL (7.4-10.4); Metamyelocyte 7 % (0-0); Monocytes 8 % (0-10); Myelocyte 3 % (0-0); Neutrophil 30 % (42-75); PLT Morphology Comment Appears Adequate; Platelet Count 188 thou/uL (130-400); RBC Distribution Width 12.7 % (11.5-14.5); Red Blood Cell (RBC) Count 3.12 mill/uL (4.70-6.10); White Blood Cell (WBC) Count 20.3 thou/uL (4.8-10.8)
[2017-09-14] MEDS: Vancomycin HCl 1.75 GM in Sodium Chloride 0.9% 500 ML IVPB SCH ×3 (03:55→19:32)
[2017-09-14 04:13] LABS: Anion Gap 10 mmol/L (10-20); BUN (Urea Nitrogen) 8 mg/dL (8.9-20.6); Calc. Creatinine Clearance 204 mL/min (70-130); Calcium 8.6 mg/dL (7.8-10.44); Carbon Dioxide 33 mmol/L (22-29); Chloride 99 mmol/L (98-107); Estimated GFR-MDRD Greater than 90; Glucose 78 mg/dL (70-105); Potassium 3.9 mmol/L (3.5-5.1); Sodium 138 mmol/L (136-145)
[2017-09-14] MEDS: Levothyroxine Sodium 125 MCG TAB PO SCH (06:01)
[2017-09-14] MEDS: Aspirin 81 mg Enteric Coated Tablet PO SCH (08:29)
[2017-09-14] MEDS: Fenofibrate Nanocrystallized 145 MG TAB PO SCH (08:29)
[2017-09-14] MEDS: Docusate 100 MG CAP PO SCH (08:29)
[2017-09-14] MEDS: ICOSAPENT ETHYL 1 GM PO SCH ×2 (08:30→16:24)
[2017-09-14] MEDS: Rosuvastatin 10 MG TAB PO SCH (08:30)
[2017-09-14] MEDS: Potassium Chloride 20 MEQ TAB PO SCH (09:00)
--- NOTE | 2017-09-14 09:39 | RAD ---
PORTABLE CHEST: HISTORY: Cough. FINDINGS: Comparison 09/10/17. There continues to be blunting of the right CP angle and stranding in the right lung base. The stran ding and atelectasis in the right lung base is slightly more prominent today. The upper lung short remain clear. Heart is mildly prominent in size but stable. IMPRESSION: 1, Right-sided effusion with right basilar atelectasis and stranding. I cannot exclude an associate d basilar infiltrate. 2. The right-sided ventriculoperitoneal shunt catheter is unchanged in appearance. POS: ISAIAH
[2017-09-14] MEDS ORDERED: Furosemide 40 MG/4 ML VIAL SLOW IVP SCH (13:00)
--- NOTE | 2017-09-14 15:17 | PRG ---
DATE OF SERVICE: 09/14/2017 HISTORY OF PRESENT ILLNESS: The patient continues to cough with some sputum production, tracy in consi stency, requires oxygen therapy. Physical therapy recommending inpatient rehabilitation given his de conditioning, continued need for oxygen and IV antibiotics. The patient's lower extremity was mainta ined in Bernabe bandage overnight without issue and good vascular checks. The patient has no additional complaints. He took a stool softener this morning without any bowel movement being produced, still p assing flatus. OBJECTIVE: VITAL SIGNS: Temperature this morning of 98.6, pulse of 74, respiratory rate of 20, oxygen saturatio n 96% on 2 liters nasal cannula, blood pressure 124/80. GENERAL: The patient is arousable, in no acute distress, sitting comfortably on nasal cannula. HEENT: Head is normocephalic. Oral mucosa is moist. No spreading of erythema on the lips, followin g Vaseline and oxygen yesterday. NECK: Supple. HEART: Regular rate and rhythm. No murmurs auscultated. LUNGS: Clear to auscultation bilaterally, diminished in bases secondary to body habitus. ABDOMEN: Protuberant, somewhat bloated, nontender, positive bowel sounds. LOWER EXTREMITIES: Wrap intact to right lower extremity. Satellite lesions have not increased past the marking line, pallor remains, erythema somewhat better, induration somewhat better following comp ressive wrap. LABORATORY DATA: White blood cell count of 20.3, hemoglobin of 10.3, platelet count of 188. Sodium of 138, potassium of 3.9, chloride of 99, BUN of 8, creatinine 0.71, glucose is 78. Vancomycin troug h of 17.1. Chest x-ray shows a INTERNSHIP COORDINATOR shunt emptying into chest cavity as prior, has increased right ple ural effusion secondarily, cannot exclude a right lower lobe infiltrates. ASSESSMENT AND PLAN: Sepsis secondary to cellulitis, appears to have spread to his lungs. Pneumonia , likely present on admission given his reliance on oxygen rather than hospital acquired. The patien t is on broad-spectrum antibiotics, vancomycin and Zosyn. We will continue to trend chest x-ray whil e he is requiring oxygen therapy. We started a dose of IV Lasix and stopped IV fluids to see if we c an dry him out some regarding his right pleural effusion. The patient's electrolyte disturbances hav e been resolved. He still has patent INTERNSHIP COORDINATOR shunt from prior traumatic brain injury. He remains on his medications for his depression with psychosis. He has not been combative with nursing. He has been oriented on exam on rounds. The patient's deconditioning with physical therapy evaluation. The meagan ent is unable to stand or walk with wound and sepsis. Recommending inpatient rehabilitation. Case rafat hanson has been consulted for possible discharge planning with likely continuation of physical therap y and IV antibiotics.
[2017-09-14] MEDS: Enoxaparin Sodium 40 MG/0.4 ML SYRINGE SC SCH (19:33)
[2017-09-14] MEDS: OLANZapine 5 MG TAB PO SCH (19:34)
[2017-09-14] MEDS ORDERED: Magnesium Citrate 300 ML BOT PO SCH (21:00)
[2017-09-15 03:47] LABS: Vancomycin, Trough 11.4 ug/mL
[2017-09-15 03:48] LABS: Anion Gap 11 mmol/L (10-20); BUN (Urea Nitrogen) 7 mg/dL (8.9-20.6); Calc. Creatinine Clearance 204 mL/min (70-130); Calcium 8.8 mg/dL (7.8-10.44); Carbon Dioxide 37 mmol/L (22-29); Chloride 96 mmol/L (98-107); Estimated GFR-MDRD Greater than 90; Glucose 80 mg/dL (70-105); Potassium 4.1 mmol/L (3.5-5.1); Sodium 140 mmol/L (136-145)
[2017-09-15] MEDS: Vancomycin HCl 1.75 GM in Sodium Chloride 0.9% 500 ML IVPB SCH ×2 (04:12→12:50)
[2017-09-15 05:24] LABS: Band 30 % (5-11); Eosinophils 4 % (0-10); Lymphocytes 10 % (21-51); MDiff Complete? YES; Macrocytosis SLIGHT = 6-15 cells (100X) (0-5/hpf); Mean Corpuscular HGB CONC 33.5 g/dL (32.0-36.0); Mean Corpuscular Hemoglobin 33.4 pg (27.0-31.0); Mean Corpuscular Volume 99.6 fl (80.0-94.0); Mean Platelet Volume 6.2 fL (7.4-10.4); Metamyelocyte 20 % (0-0); Monocytes 8 % (0-10); Myelocyte 6 % (0-0); Neutrophil 19 % (42-75); PLT Morphology Comment Appears Adequate; Platelet Count 244 thou/uL (130-400); RBC Distribution Width 12.7 % (11.5-14.5); Reactive Lymphocytes 3 % (0-10); Red Blood Cell (RBC) Count 3.28 mill/uL (4.70-6.10); White Blood Cell (WBC) Count 21.1 thou/uL (4.8-10.8)
[2017-09-15] MEDS: Piperacillin/Tazobactam 4.5 GM in Sodium Chloride 0.9% 100 ML IVPB SCH ×2 (06:39→15:20)
[2017-09-15] MEDS: Levothyroxine Sodium 125 MCG TAB PO SCH (06:39)
[2017-09-15 07:26] VITALS: BP 99/65; TEMP 98
[2017-09-15] MEDS: Fenofibrate Nanocrystallized 145 MG TAB PO SCH (08:24)
[2017-09-15] MEDS: Aspirin 81 mg Enteric Coated Tablet PO SCH (08:25)
[2017-09-15] MEDS: Rosuvastatin 10 MG TAB PO SCH (08:25)
[2017-09-15] MEDS: Docusate 100 MG CAP PO SCH (08:25)
[2017-09-15] MEDS: ICOSAPENT ETHYL 1 GM PO SCH (08:28)
[2017-09-15] MEDS ORDERED: Magnesium Citrate 300 ML BOT PO SCH (11:30)
[2017-09-15] MEDS ORDERED: predniSONE 20 MG TAB PO SCH (11:30)
[2017-09-15] MEDS ORDERED: Furosemide 40 MG/4 ML VIAL SLOW IVP SCH (11:30)
[2017-09-15] MEDS ORDERED: cefTRIAXone\\ROCEPHIN 2 GM in Sodium Chloride 0.9% 100 ML IVPB SCH (16:00)
[2017-09-16] MEDS ORDERED: predniSONE 20 MG TAB PO SCH (08:00)
[2017-09-16] MEDS ORDERED: Furosemide 40 MG/4 ML VIAL SLOW IVP SCH (09:00)
--- NOTE | 2017-09-17 09:39 | DIS ---
DATE OF ADMISSION: 09/10/2017 DATE OF DISCHARGE: 09/15/2017 PRIMARY CARE PHYSICIAN: Enrique Arambula M.D. CHIEF COMPLAINT: Lower extremity cellulitis. PRESENTING HISTORY OF PRESENT ILLNESS: The patient presented to the emergency department from his ruel hend[place], his sister, whom he lives with. He has been dependent on her with some level of mental bryce rdation following a traumatic brain injury some years ago. A INFORMATION RESOURCE CONSULTANT shunt is in place into his right tho racic cavity. He has gotten scratched by barbed wire and/or brush approximately a week prior with wo rsening lower extremity edema, redness and pallor. He finally became delirious and febrile. She pre sented to the Emergency Department with the patient who was found to be in acute sepsis with hyponatr emia, hypokalemia. Following volume rehydration, vancomycin and Zosyn developing pleural effusion an d possible pneumonia which was likely present on admission, electrolytes were corrected. The patient was added on doxycycline. Blood pressure, heart rate returned to normal. However, the patient's le ukocytosis did not improve as quickly as we would like. We added Lasix to transition to help treat p leural effusion complicated by INFORMATION RESOURCE CONSULTANT shunt. On discharge modulate antibiotics, Rocephin and Levaquin fo r a perhaps better coverage of cellulitis and pneumonia. The patient's lower extremity was placed in compressive wrap with vascular checks to ensure circulation was maintained. The patient with a hist ory of venous stasis dermatitis. The patient was maintained on his depression medications secondary to his acute psychosis. The patient required oxygen therapy throughout his stay and was accepted for inpatient rehab with [facility] and was transferred for continued physical therapy, occupat ional therapy, nursing and IV antibiotics and at this point oxygen therapy. DISCHARGE DIET: Regular. DISCHARGE ACTIVITY: Per physical therapy with assistance. Oxygen therapy. FOLLOWUP: Follow up with myself following discharge from inpatient rehab in one week. CONSULTATIONS: No consultations were performed. DISCHARGE MEDICATIONS: Included 81 mg aspirin, Rocephin 2 grams daily, Depakote 1500 mg b.i.d., Cola ce 100 mg daily, fenofibrate 145 mg daily, Lasix 40 mg IV daily. Vascepa 1 gram b.i.d., Levaquin 750 mg IV daily, Synthroid 125 mcg, olanzapine 25 mg at bedtime, prednisone 40 mg daily, Crestor 10 mg d quinn, Zoloft 100 mg b.i.d.
== END 2017-09-15 18:22 | disposition short-term general hospital (02) | DRG 871 ==
LOC: ERS 10:20 → 2NO 14:38 → T4-A 09-13 09:51
PROVIDERS: ADMIT Family Medicine; ATTEND Family Medicine
PROC: 3E0234Z Introduction of Serum, Toxoid and Vaccine into Muscle, Percutaneous Approach (ICD-10-PCS; principal; 2017-09-10)
DX: A41.9 Sepsis, unspecified organism (principal); J18.9 Pneumonia, unspecified organism; E87.1 Hypo-osmolality and hyponatremia; L03.115 Cellulitis of right lower limb; J90 Pleural effusion, not elsewhere classified; E86.0 Dehydration; E87.6 Hypokalemia; B96.89 Other specified bacterial agents as the cause of diseases classified elsewhere; E03.9 Hypothyroidism, unspecified; F79 Unspecified intellectual disabilities; F32.9 Major depressive disorder, single episode, unspecified; F29 Unspecified psychosis not due to a substance or known physiological condition; Z23 Encounter for immunization; Z87.820 Personal history of traumatic brain injury; Z98.2 Presence of cerebrospinal fluid drainage device; Z79.82 Long term (current) use of aspirin; Z79.899 Other long term (current) drug therapy; S81.831A Puncture wound without foreign body, right lower leg, initial encounter; W26.8XXA Contact with other sharp object(s), not elsewhere classified, initial encounter; Y92.007 Garden or yard of unspecified non-institutional (private) residence as the place of occurrence of the external cause; K59.00 Constipation, unspecified; Z99.81 Dependence on supplemental oxygen
CPT/HCPCS: 36415; 71045; 80048; 80053; 80202; 81003; 81015; 82805; 83605; 83735; 84443; 85025; 86140; 87040; 87086; 90715; 93005; 94760; 96365; 96367; A4216; G8978-GP-CK; G8979-GP-CI; J0696; J1650; J1940; J1956; J2543; J3370; J7050; J7506

== ENCOUNTER → 2017-09-18 | Day surgery (SDC) | payer MEDICARE, MEDICAID ==
[~2017-09-18] MED LIST: Heparin 1,000 UNITS/ML VIAL ONE
--- NOTE | 2017-09-18 15:42 | SPC ---
ULTRASOUND LEFT UPPER EXTREMITY PICC PLACEMENT: INDICATION: Sepsis. TECHNIQUE: Informed consent was obtained. Preprocedure ultrasound was performed of the left upper extremity. T here is a patent left basilic vein. A site overlying the left upper extremity was prepped and draped in the usual sterile fashion. Buffered 1% Lidocaine was administered to the overlying subcutaneous tissues. Under ultrasound guidance, a micropuncture access kit was utilized to gain access to the le ft basilic vein. The guidewire was advanced to the level of the IVC. A 5 Georgian catheter sheath was then placed. A dual-lumen PICC line trimmed to 49 cm guided over the wire and through the sheath. The sheath and wire were removed. The catheter was advanced to the level of the cavoatrial junction. The catheter flushed and aspirated appropriately. The patient tolerated the procedure without diff iculty. Total fluoroscopic time was 0.3 minutes. Total exposure was 2,974 mGy*^cm2. IMPRESSION: Successful left upper extremity PICC line. POS: ISAIAH
== END ==
LOC: SPEC 12:54
PROVIDERS: ATTEND Internal Medicine Infectious Disease
PROC: 02HV33Z Insertion of Infusion Device into Superior Vena Cava, Percutaneous Approach (ICD-10-PCS; principal; 2017-09-18)
PROC: B518YZA Fluoroscopy of Superior Vena Cava using Other Contrast, Guidance (ICD-10-PCS; 2017-09-18)
PROC: B548ZZA Ultrasonography of Superior Vena Cava, Guidance (ICD-10-PCS; 2017-09-18)
DX: A41.9 Sepsis, unspecified organism (principal)
CPT/HCPCS: 36569; C1751; J1644

== ENCOUNTER 2018-11-14 14:50 | Inpatient (IN) | payer MEDICARE, MEDICAID ==
[2018-11-14] MEDS ORDERED: Piperacillin/Tazobactam 4.5 GM VIAL ONE (15:17)
--- NOTE | 2018-11-14 15:28 | RAD ---
XR Chest 1 View Portable History: Altered mental status. Dizziness Comparison: Radiograph September 14, 2017 Findings: Shunt catheter projects over the right hemithorax. Chronic right effusion with round atelec tasis. Left lung is clear. No pneumothorax. Impression: Similar examination of the chest.
[2018-11-14 15:33] LABS: Hemoglobin 12.8 g/dL (14.0-18.0); Mean Corpuscular HGB CONC 34.1 g/dL (32.0-36.0); Mean Corpuscular Hemoglobin 32.7 pg (27.0-31.0); Mean Corpuscular Volume 95.8 fL (78.0-98.0); Mean Platelet Volume 6.6 fL (7.4-10.4); Platelet Count 199 thou/uL (130-400); RBC Distribution Width 12.7 % (11.5-14.5); Red Blood Cell (RBC) Count 3.91 mill/uL (4.70-6.10)
[2018-11-14 15:42] LABS: ALT (SGPT) 23 U/L (8-55); AST (SGOT) 30 U/L (5-34); Albumin 3.7 g/dL (3.5-5.0); Alkaline Phosphatase 40 U/L (40-150); Anion Gap 9 mmol/L (10-20); BUN (Urea Nitrogen) 14 mg/dL (8.9-20.6); Bilirubin, Total 0.3 mg/dL (0.2-1.2); Calc. Creatinine Clearance 0 mL/min (70-130); Calcium 8.7 mg/dL (7.8-10.44); Carbon Dioxide 25 mmol/L (22-29); Chloride 101 mmol/L (98-107); Estimated GFR-MDRD Greater than 90; Globulin 2.2 g/dL (2.4-3.5); Glucose 119 mg/dL (70-105); Potassium 3.4 mmol/L (3.5-5.1); Protein, Total 5.9 g/dL (6.0-8.3); Sodium 132 mmol/L (136-145)
[2018-11-14 16:02] LABS: Band 20 % (5-11); Lymphocytes 12 % (21-51); MDiff Complete? YES; Monocytes 14 % (0-10); Neutrophil 53 % (42-75); Platelet Morphology Comment Appears Adequate; Polychromasia SLIGHT = 2-3 cells (100X) (0-2/hpf); Reactive Lymphocytes 1 % (0-10); Stomatocytes SLIGHT = 2-5 cells (100X) (0-1/hpf)
[2018-11-14 16:16] LABS: Bacteria/HPF None Seen HPF (None Seen); Bilirubin Negative (Negative); Blood, Urine Negative (Negative); Clarity Clear (Clear); Glucose, Urine (Dipstick) Normal (Negative); Leukocyte Negative Leu/uL (Negative); Nitrite Negative (Negative); Protein, Urine (Dipstick) 30 mg/dL (Neg-Trace); RBC/HPF 0-3 HPF (0-3); Squamous Epithelial None Seen HPF (0-3); Urobilinogen Normal mg/dL (Less than 2); WBC/HPF 0-3 HPF (0-3)
[2018-11-14] MEDS ORDERED: Acetaminophen 500 MG TAB ONE (17:29)
[2018-11-14] MEDS ORDERED: Ibuprofen 200 MG TAB ONE (17:43)
[2018-11-14] MEDS ORDERED: Ondansetron PF 4 MG/2 ML Vial IVP PRN (18:31)
[2018-11-14] MEDS ORDERED: Acetaminophen 325 MG TAB PO PRN (18:31)
[2018-11-14] MEDS ORDERED: Ondansetron ODT 4 MG TAB PO PRN (18:31)
[2018-11-14] MEDS ORDERED: Vancomycin HCl 1 GM in Premix Bag 1 BAG IVPB SCH (19:00)
[2018-11-14 22:47] VITALS: BMI 29.3
[2018-11-14] MEDS: Sodium Chloride 0.9% 1,000 ML IV SCH (23:04)
[2018-11-14] MEDS ORDERED: Divalproex Sodium DR 500 MG TAB PO SCH (23:45)
[2018-11-14] MEDS ORDERED: OLANZapine 5 MG TAB PO SCH (23:45)
[2018-11-15] MEDS: Piperacillin/Tazobactam 4.5 GM in Sodium Chloride 0.9% 100 ML IVPB SCH ×3 (00:34→10:09)
--- NOTE | 2018-11-15 01:49 | HP ---
Admitting physician will be Dr. Enrique Arambula; Dr. Alverto Reynoso, [place]. HISTORY OF PRESENT ILLNESS: The patient is a 42-year-old male, who has a previous history of traumatic brain injury with a functioning CITY CLERK shunt. He states he was in his normal state of health when he went to a local [facility]. He began walking around, felt very dizzy. He got lightheaded and fell to the floor; 911 was called, and he was brought to the hospital. He was seen and evaluated in the ER, apparently found to have a fever of 102.4. He was seen and evaluated in the ER. His ER workup proved to show no evidence of any current infection. His chest x-ray was clear. The patient was examined and questioned by me. He states he was feeling well, had no difficulties today or yesterday. He has not noted any recent injuries or trauma. No vomiting or diarrhea. No productive coughing. He states he simply went to [employer] and became ill there. He was brought to the emergency room. He apparently has a previous history of cellulitis of his right lower extremity. He has had no known injuries. His shunt seems to be functioning properly. As noted, he has a previous history of traumatic brain injury and he has had multiple brain surgeries. He is accompanied today by his sister. Overall, he states, right now he is feeling quite well. He reports no other medical complaints. He has not noted any headache, particular body ache, or chills. Otherwise, he did not realize he had fever. ALLERGIES: HE HAS NO KNOWN ALLERGIES. MEDICATIONS: Medications were reviewed over with his sister's phone. They were not available to me at this time, but they were reviewed. PAST MEDICAL HISTORY: Previous history of traumatic brain injury from fall in a manhole. He has a CITY CLERK shunt. He does have a history of developmental decline since his brain injury. He reports no other surgeries. Medical history is positive for hypothyroidism as well as hypercholesterolemia. FAMILY HISTORY: Positive for diabetes. SOCIAL AND PERSONAL HISTORY: He lives with his sister, who has medical power of real estate associate attorney. He also has a sitter at times. REVIEW OF SYSTEMS: GI: Negative. : Negative. CARDIOVASCULAR: Otherwise, negative RESPIRATORY: Otherwise, negative. PHYSICAL EXAMINATION: VITAL SIGNS: His blood pressure is 114/74, pulse 100, respirations 20, O2 saturations 98% on room air. Temperature is 99.3. GENERAL: He is alert, active, does not appear in any distress. He answers questions appropriately. HEENT: There is a CITY CLERK shunt that is able to be palpated. There is no evidence of any abrasions or lesions otherwise noted. NECK: Supple. Full range of motion. No masses. LUNGS: Clear bilaterally. HEART: Reveals a regular rate and rhythm with a slight tachycardia at times without murmurs, gallops, or rubs. ABDOMEN: Soft and nontender. The bowel sounds are present and active. No hepatosplenomegaly is noted. There is no evidence of rebound or guarding noted at this time. EXTREMITIES: Showed no evidence of any clubbing, edema, or cyanosis noted at this time. SKIN: Shows no evidence of any skin breakdown or skin lesions. NEUROLOGIC: He follows commands well. He moves all extremities upon command. LABORATORY DATA: His white blood count is 11.0, hemoglobin 12.8, and hematocrit is 37.5. He has 53 segs, 20 bands, 12 lymphocytes, 1 reactive lymphocyte, 14 monocytes. Sodium 132, potassium 3.4, chloride 101, CO2 of 25, BUN 14, and creatinine 0.87. His lactic acid is normal at 2.2. Urinalysis is clear. IMAGING DATA: Chest x-ray shows catheter in the right hemithorax with a chronic right effusion with some atelectasis, but otherwise is clear. No change from previous chest x-ray. IMPRESSION: This is a 42-year-old male, who has a history of previous brain injury, has a CITY CLERK shunt, who presented to the emergency room with weakness and fever. All workup show no evidence of any active infection thus far. Thus, he will be admitted with a diagnosis of possible sepsis. He will be placed on IV antibiotic, which he has already had some. I believe that he had Zosyn and vancomycin, which we will continue at this time. I have discussed the findings with the patient as well as his sister. PLAN: Admit. At this time, continue IV antibiotics. Continue IV fluids. Dr. Arambula will resume care in a.m.. Job ID: [id number]
[2018-11-15] MEDS: Vancomycin HCl 1.5 GM in Sodium Chloride 0.9% 250 ML 300 ML IVPB SCH ×3 (02:56→17:51)
[2018-11-15] MEDS ORDERED: Vancomycin HCl 1 GM in Premix Bag 1 BAG IVPB SCH (05:00)
[2018-11-15] MEDS: Sodium Chloride 0.9% 1,000 ML IV SCH ×2 (05:44→10:11)
[2018-11-15 06:04] LABS: Anion Gap 9 mmol/L (10-20); BUN (Urea Nitrogen) 12 mg/dL (8.9-20.6); Calc. Creatinine Clearance 156 mL/min (70-130); Calcium 8.7 mg/dL (7.8-10.44); Carbon Dioxide 25 mmol/L (22-29); Chloride 107 mmol/L (98-107); Estimated GFR-MDRD Greater than 90; Glucose 87 mg/dL (70-105); Potassium 3.8 mmol/L (3.5-5.1); Sodium 137 mmol/L (136-145)
[2018-11-15] MEDS: Levothyroxine Sodium 100 MCG TAB PO SCH (06:11)
[2018-11-15 06:34] LABS: Hemoglobin 11.8 g/dL (14.0-18.0); Mean Corpuscular HGB CONC 34.1 g/dL (32.0-36.0); Mean Corpuscular Hemoglobin 33.2 pg (27.0-31.0); Mean Corpuscular Volume 97.6 fL (78.0-98.0); Mean Platelet Volume 6.7 fL (7.4-10.4); Platelet Count 186 thou/uL (130-400); RBC Distribution Width 12.7 % (11.5-14.5); Red Blood Cell (RBC) Count 3.55 mill/uL (4.70-6.10); White Blood Cell (WBC) Count 15.5 thou/uL (4.8-10.8)
[2018-11-15 06:42] LABS: Band 26 % (5-11); Lymphocytes 17 % (21-51); MDiff Complete? YES; Metamyelocyte 1 % (0-0); Monocytes 21 % (0-10); Neutrophil 35 % (42-75)
[2018-11-15] MEDS ORDERED: ICOSAPENT ETHYL 2 GM PO SCH (08:00)
[2018-11-15] MEDS: Fenofibrate Nanocrystallized 145 MG TAB PO SCH (09:51)
[2018-11-15] MEDS: Enoxaparin Sodium 40 MG/0.4 ML SYRINGE SC SCH (09:51)
[2018-11-15] MEDS: Rosuvastatin 10 MG TAB PO SCH (09:51)
[2018-11-15] MEDS: Divalproex Sodium DR 500 MG TAB PO SCH ×2 (10:13→20:35)
[2018-11-15] MEDS ORDERED: Lorazepam 2 MG/ML VIAL SLOW IVP PRN (14:26)
[2018-11-15] MEDS: cefTRIAXone\\ROCEPHIN 2 GM in Sodium Chloride 0.9% 100 ML IVPB SCH (15:09)
--- NOTE | 2018-11-15 15:15 | CT ---
CT BRAIN WITH AND WITHOUT IV CONTRAST: HISTORY: LUBRICATING MACHINE TENDER shunt, dizziness, unsteady gait, sepsis COMPARISON: 06/29/2017 FINDINGS: Encephalomalacia and gliosis in the anterior inferior frontal lobes bilaterally representing sequelae of prior trauma are again seen. The moderately large region of right anterior temporal lobe encephalomalacia and gliosis and changes of right frontotemporal craniotomy and left parietal craniot emely are again seen. The LUBRICATING MACHINE TENDER shunt catheter entering through a right parietal hien hole, traversing the midline posterior t o the splenium of the corpus callosum, traversing the posterior body of the left lateral ventricle with distal tip in the region of the posterior limb of the left internal capsule is unchanged. No significant ventriculomegaly is seen. No evidence of acute infarct, hemorrhage, midline shift or a bnormal extra-axial fluid collection is seen. No mass or abnormal postcontrast enhancement is identified. IMPRESSION: No CT evidence of acute intracranial process.
[2018-11-15] MEDS ORDERED: ISOVUE-370 76%-LOCM 1 ML ONE (16:35)
[2018-11-15 17:25] LABS: Vancomycin, Trough 18.3 ug/mL
--- NOTE | 2018-11-15 18:06 | PRG ---
DATE OF SERVICE: 11/15/2018 HISTORY OF PRESENT ILLNESS: The patient states he feels better, but continues to be a bit on the cold side, temperatures have trended rather than febrile down to below typical cut off the 96 range. The patient is tolerating IV antibiotics well. Otherwise, denies any urinary symptoms. Denies any sinus symptoms. Denies any cough or congestion. Prior history of lower extremity cellulitis. However, his legs currently with controlled edema and no erythema or pallor. OBJECTIVE: VITAL SIGNS: Temperature of 96.6, pulse of 72, respiratory rate of 18, oxygen saturation 95% on room air, blood pressure 110/74. LABORATORY DATA: Sodium 137, potassium is 3.8, creatinine of 0.84. White blood cell count of 15, neutrophil percent is 35, low; hemoglobin is 11.8. Brain CT without acute events. SHUTTLE VAN DRIVER shunt appears to be stable. Urine culture at 12 hours, no growth. Blood cultures at 24 hours, no growth x2. PHYSICAL EXAMINATION: GENERAL: The patient is alert, quick to return to sleep. HEENT: Head is normocephalic. Extraocular movements are intact. Sclerae white. Oral mucosa is moist. NECK: Supple. HEART: Regular rate and rhythm at the time of exam. No murmurs auscultated. LUNGS: Clear to auscultation bilaterally. No rubs or wheezes. ABDOMEN: Soft, nontender. Positive bowel sounds throughout. EXTREMITIES: Lower extremities with signs and symptoms of venous stasis dermatitis. Lack of hair on shins bilaterally. Hemosiderin deposits present bilaterally. No pitting edema, however, no cyanosis of lower extremities on feet bilaterally. The patient is alert and oriented x3. No focal deficits. Speech is normal. ASSESSMENT AND PLAN: Sepsis of unknown source. Given the patient's SHUTTLE VAN DRIVER shunt, changing Zosyn for Rocephin at this point in time. We will trend cell counts and follow hyperthermia and hypothermia, p.r.n. warmer. If the patient does not improve over the weekend, may consider lumbar puncture. At this point in time, the patient remains on IV fluids to keep IV patent and fairchild off acute kidney injury from antibiotic use and to resuscitate any hydration needs from sepsis. The patient has a prior remote traumatic brain injury with mood disorder, continued on Zyprexa and Zoloft as well as Depakote, prophylactic Lovenox at 40 mg subcu daily. Job ID: [id number]
[2018-11-15] MEDS: OLANZapine 5 MG TAB PO SCH (20:34)
[2018-11-16] MEDS: Vancomycin HCl 1.5 GM in Sodium Chloride 0.9% 250 ML 300 ML IVPB SCH ×3 (01:59→17:23)
[2018-11-16] MEDS: Sodium Chloride 0.9% 1,000 ML IV SCH ×3 (02:00→20:37)
[2018-11-16] MEDS: Levothyroxine Sodium 100 MCG TAB PO SCH (05:32)
[2018-11-16 05:50] LABS: #Basophils 0.1 thou/uL (0.0-0.2); #Eosinphils 0.2 thou/uL (0.0-0.7); #Lymphocytes 2.9 thou/uL (1.20-3.40); #Monocytes 1.8 thou/uL (0.11-0.59); #Neutrophils 7.8 thou/uL (1.40-6.50); %Basophils 0.4 % (0.0-1.0); %Eosinophils 1.4 % (0.0-10.0); %Lymphocytes 22.8 % (21.0-51.0); %Monocytes 14.3 % (0.0-10.0); Hemoglobin 11.6 g/dL (14.0-18.0); Mean Corpuscular HGB CONC 32.6 g/dL (32.0-36.0); Mean Corpuscular Hemoglobin 31.8 pg (27.0-31.0); Mean Corpuscular Volume 97.5 fL (78.0-98.0); Mean Platelet Volume 7.2 fL (7.4-10.4); Platelet Count 193 thou/uL (130-400); RBC Distribution Width 12.9 % (11.5-14.5); Red Blood Cell (RBC) Count 3.64 mill/uL (4.70-6.10); White Blood Cell (WBC) Count 12.8 thou/uL (4.8-10.8)
[2018-11-16 06:14] LABS: ALT (SGPT) 16 U/L (8-55); AST (SGOT) 17 U/L (5-34); Albumin 3.1 g/dL (3.5-5.0); Alkaline Phosphatase 40 U/L (40-150); Anion Gap 10 mmol/L (10-20); BUN (Urea Nitrogen) 8 mg/dL (8.9-20.6); Bilirubin, Total 0.2 mg/dL (0.2-1.2); Calc. Creatinine Clearance 172 mL/min (70-130); Calcium 8.7 mg/dL (7.8-10.44); Carbon Dioxide 25 mmol/L (22-29); Chloride 112 mmol/L (98-107); Estimated GFR-MDRD Greater than 90; Globulin 2.2 g/dL (2.4-3.5); Glucose 73 mg/dL (70-105); Potassium 3.8 mmol/L (3.5-5.1); Protein, Total 5.3 g/dL (6.0-8.3); Sodium 143 mmol/L (136-145)
[2018-11-16] MEDS: Rosuvastatin 10 MG TAB PO SCH (08:45)
[2018-11-16] MEDS: Fenofibrate Nanocrystallized 145 MG TAB PO SCH (08:46)
[2018-11-16] MEDS: Enoxaparin Sodium 40 MG/0.4 ML SYRINGE SC SCH (08:46)
[2018-11-16] MEDS: Divalproex Sodium DR 500 MG TAB PO SCH ×2 (08:48→20:35)
--- NOTE | 2018-11-16 12:45 | PRG ---
DATE OF SERVICE: 11/16/2018 The patient is in bed 4414. The patient's temp has been afebrile over the last 24 hours. Feels better today. His I's and O's shows an intake of 3200, output of 750. This over the last 24 hours showed a balance positive at 2450. OBJECTIVE: LUNGS: Clear. HEART: S1, S2. No rubs, murmurs, or gallops. ABDOMEN: Obese, soft, nontender. His white count has improved down to 12.8 with a hemoglobin stable at 11.5 and 35.5, platelet count stable at 193. His chemistry shows sodium 143, potassium 3.8, chloride 112, bicarb 25, BUN is 8, creatinine of 0.76, GFR is greater than 90. His microbiology shows no growth at this time. PLAN: We will keep on for at least another day. We will keep following labs. ASSESSMENT: Fever of unknown origin. Wound sepsis of unknown source. Will stay on Rocephin at this time as the patient has been evaluated and not been found to be in any distress or any problems. His renal function is within normal limits. He has had no seizures. Hopefully home soon. Job ID: [id number]
[2018-11-16] MEDS: cefTRIAXone\\ROCEPHIN 2 GM in Sodium Chloride 0.9% 100 ML IVPB SCH (14:10)
[2018-11-16] MEDS: OLANZapine 5 MG TAB PO SCH (20:34)
[2018-11-17] MEDS: Vancomycin HCl 1.5 GM in Sodium Chloride 0.9% 250 ML 300 ML IVPB SCH ×2 (02:28→09:22)
[2018-11-17 05:27] LABS: #Basophils 0.1 thou/uL (0.0-0.2); #Eosinphils 0.3 thou/uL (0.0-0.7); #Lymphocytes 4.2 thou/uL (1.20-3.40); #Monocytes 1.1 thou/uL (0.11-0.59); #Neutrophils 6.2 thou/uL (1.40-6.50); %Basophils 0.6 % (0.0-1.0); %Eosinophils 2.9 % (0.0-10.0); %Lymphocytes 35.4 % (21.0-51.0); %Monocytes 8.8 % (0.0-10.0); %Neutrophils 52.2 % (42.0-75.0); Hemoglobin 12.2 g/dL (14.0-18.0); Mean Corpuscular HGB CONC 34.1 g/dL (32.0-36.0); Mean Corpuscular Hemoglobin 33.3 pg (27.0-31.0); Mean Corpuscular Volume 97.8 fL (78.0-98.0); Mean Platelet Volume 7.1 fL (7.4-10.4); Platelet Count 189 thou/uL (130-400); RBC Distribution Width 12.8 % (11.5-14.5); Red Blood Cell (RBC) Count 3.66 mill/uL (4.70-6.10); White Blood Cell (WBC) Count 11.9 thou/uL (4.8-10.8)
[2018-11-17] MEDS: Levothyroxine Sodium 100 MCG TAB PO SCH (05:37)
[2018-11-17 05:50] LABS: Anion Gap 13 mmol/L (10-20); BUN (Urea Nitrogen) 7 mg/dL (8.9-20.6); CRP (Inflammatory) 3.39 mg/dL (= or < 0.5); Calc. Creatinine Clearance 192 mL/min (70-130); Calcium 9.1 mg/dL (7.8-10.44); Carbon Dioxide 24 mmol/L (22-29); Chloride 109 mmol/L (98-107); Estimated GFR-MDRD Greater than 90; Glucose 70 mg/dL (70-105); Potassium 3.8 mmol/L (3.5-5.1); Sodium 142 mmol/L (136-145)
[2018-11-17] MEDS: Fenofibrate Nanocrystallized 145 MG TAB PO SCH (07:50)
[2018-11-17] MEDS: Rosuvastatin 10 MG TAB PO SCH (07:51)
[2018-11-17] MEDS: Divalproex Sodium DR 500 MG TAB PO SCH ×2 (07:52→20:03)
[2018-11-17] MEDS: Enoxaparin Sodium 40 MG/0.4 ML SYRINGE SC SCH (08:05)
[2018-11-17] MEDS: Sodium Chloride 0.9% 1,000 ML IV SCH ×2 (08:06→16:35)
--- NOTE | 2018-11-17 10:32 | PRG ---
DATE OF SERVICE: 11/17/2018 SUBJECTIVE: He has had an uneventful evening. Feels good today. He has no diarrhea. Has been afebrile overnight, tolerating p.o. All his cultures remain negative. OBJECTIVE: HEART: S1 and S2. No rubs, murmurs, or gallops. LUNGS: Clear to auscultation. ABDOMEN: Soft, nontender, slightly obese. Bowel sounds are normoactive. EXTREMITIES: Good palpable pulses in all 4 extremities. No cyanosis, clubbing, or edema. LABORATORY DATA: White count is down to 11.9, hemoglobin is up to 12.2. His neutrophil percentage is at 52 lymphocytes of 35, no bands are being reported. Chemistry, sodium 142, potassium 3.8, chloride 109, bicarb 24, BUN 7, creatinine 0.68, GFR is greater than 90, glucose is 70. C-reactive protein is 3.39. All cultures are still showing no growth. ASSESSMENT: Sepsis of unknown origin, appears to be controlled. Based on the current situation, I will be changing from IV antibiotics to p.o. I will stop the vancomycin and the Rocephin and start him on Omnicef, and if everything is doing well, hopefully Dr. Arambula let him go home tomorrow. Job ID: [id number]
[2018-11-17] MEDS ORDERED: Cefdinir 300 MG CAP PO SCH (11:00)
[2018-11-17] MEDS: Cefdinir 300 MG CAP PO SCH (20:03)
[2018-11-17] MEDS: OLANZapine 5 MG TAB PO SCH (20:04)
[2018-11-18] MEDS: Sodium Chloride 0.9% 1,000 ML IV SCH (03:21)
[2018-11-18 04:57] LABS: #Basophils 0.1 thou/uL (0.0-0.2); #Eosinphils 0.4 thou/uL (0.0-0.7); #Lymphocytes 4.6 thou/uL (1.20-3.40); #Monocytes 0.9 thou/uL (0.11-0.59); #Neutrophils 4.4 thou/uL (1.40-6.50); %Basophils 0.5 % (0.0-1.0); %Eosinophils 3.7 % (0.0-10.0); %Lymphocytes 44.4 % (21.0-51.0); %Monocytes 8.6 % (0.0-10.0); %Neutrophils 42.7 % (42.0-75.0); Mean Corpuscular HGB CONC 33.3 g/dL (32.0-36.0); Mean Corpuscular Hemoglobin 32.6 pg (27.0-31.0); Mean Corpuscular Volume 98.1 fL (78.0-98.0); Mean Platelet Volume 6.8 fL (7.4-10.4); Platelet Count 216 thou/uL (130-400); RBC Distribution Width 12.8 % (11.5-14.5); Red Blood Cell (RBC) Count 3.99 mill/uL (4.70-6.10); White Blood Cell (WBC) Count 10.3 thou/uL (4.8-10.8)
[2018-11-18] MEDS: Levothyroxine Sodium 100 MCG TAB PO SCH (05:46)
[2018-11-18 07:55] VITALS: BP 118/76; TEMP 97.6
[2018-11-18] MEDS: Cefdinir 300 MG CAP PO SCH (09:31)
[2018-11-18] MEDS: Rosuvastatin 10 MG TAB PO SCH (09:31)
[2018-11-18] MEDS: Fenofibrate Nanocrystallized 145 MG TAB PO SCH (09:31)
[2018-11-18] MEDS: Enoxaparin Sodium 40 MG/0.4 ML SYRINGE SC SCH (09:31)
[2018-11-18] MEDS: Divalproex Sodium DR 500 MG TAB PO SCH (09:32)
[2018-11-18] MEDS ORDERED: Rifampin 300 MG CAP PO SCH (22:00)
--- NOTE | 2018-11-19 00:02 | DIS ---
DATE OF ADMISSION: 11/14/2018 DATE OF DISCHARGE: 11/18/2018 PRIMARY CARE PHYSICIAN: Enrique Arambula MD CHIEF COMPLAINT: On admission was severe chills, presented to the emergency department found to have fever, tachycardia, tachypnea, leukocytosis consistent with sepsis, however, the source was unknown. He has had cellulitis of lower extremity leading to sepsis in the past from thorns and wood knots as he routinely walks about in [place]. However, he did not do this prior to this episode and does not have a cough. Urine is clear. Does have a BOARD MACHINE SET UP OPERATOR shunt. Chest x-ray of BOARD MACHINE SET UP OPERATOR shunt ending in pleura showed stable pleural effusion. No element of pneumonia. CT of the head did not show any significant swelling or evidence of likely infection brain. Given the patient was stabilized on vancomycin and transitioned from Zosyn to Rocephin, and was stable and afebrile, did not pursue lumbar puncture. The patient was transitioned on Omnicef for outpatient transition as this may penetrate CSF a bit better, discharged with rifampin in addition to heighten that. DISCHARGE CONDITION: Good. FOLLOWUP: Followup with Dr. Enrique Arambula, PCP, in one week. DISCHARGE DIET: Regular. ACTIVITY: As tolerated. The patient was ambulatory and well prior to discharge. DISCHARGE MEDICATIONS: Include: 1. Rifampin 300 mg twice daily. 2. Cefdinir 300 mg twice daily. 3. Continue home rosuvastatin, olanzapine, sertraline with CPAP, fenofibrate, and Depakote. Job ID: [id number]
== END 2018-11-18 15:22 | disposition home or self-care (01) | DRG 872 ==
LOC: ERS 14:50 → ERHOLD 17:12 → T4-A 22:34
PROVIDERS: ADMIT Family Medicine; ATTEND Family Medicine
DX: A41.9 Sepsis, unspecified organism (principal); E03.9 Hypothyroidism, unspecified; E78.00 Pure hypercholesterolemia, unspecified; Z79.899 Other long term (current) drug therapy; F41.9 Anxiety disorder, unspecified; F32.9 Major depressive disorder, single episode, unspecified; Z87.820 Personal history of traumatic brain injury; Z98.2 Presence of cerebrospinal fluid drainage device; Z91.81 History of falling
CPT/HCPCS: 36415; 70470; 71045; 80048; 80053; 80202; 81003; 81015; 83605; 84484; 85025; 86140; 87040; 87086; 93005; J0696; J1650; J2543; J3370; J3490; J7050; Q9966

== ENCOUNTER 2018-12-02 10:46 | Emergency (ER) | payer MEDICARE, MEDICAID | END 2018-12-02 12:59 | disposition home or self-care (01) | LOC: SCSER 10:46 | DX: B37.2 Candidiasis of skin and nail (principal); E78.00 Pure hypercholesterolemia, unspecified; F41.9 Anxiety disorder, unspecified; F32.9 Major depressive disorder, single episode, unspecified | CPT/HCPCS: 99282 ==